=== PATIENT | male | born 2000 | race African-American/Black ===

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

== ENCOUNTER 2022-03-06 16:27 | Emergency (ER) | payer OTHER ==
--- OUTSIDE RECORDS SUMMARY | 2022-03-06 16:30 | XMS REPORT | Continuity of Care Document ---
:2000 Author Organization [facility] t Address [address] [place] [address] Care Team Providers Name Role Phone Pcp, Does Not Have A Primary Care Physician Vickey Guzman MD Attending Clinician Symone HILLIARD Attending Clinician Unavailable Vickey GUZMAN Attending Clinician Unavailable Payers Payer Name Policy Type Policy Number Effective Date Expiration Date S ource Problems Condition Condition Condition Status Onset Resolution Last Treating Co mments Source Name Details Category Date Date Treatment Clinician Date Rupture of Rupture of Disease Active U nivers anterior anterior 05-03 ity of cruciate cruciate 00:00: [place] ligament ligament 00 Medica l of right of right Branch knee knee Allergies, Adverse Reactions, Alerts Allergy Allergy Status Severity Reaction(s) Onset Inactive Treating Comm ents Source Name Type Date Date Clinician ASPIRIN DRUG Active Other-Cmnt Unive rs INGREDI 05-21 ity of 00:00: [place] 00 Medical Branch Aspirin Propensi Active Other - See Increased Univers ty to comments 05-21 heart ity of adverse 00:00: rate [place] reaction 00 Medical s Branch Social History Social Habit Start Date Stop Date Quantity Comments Source Exposure to Not sure [facility] SARS-CoV-2 (event) Medica l Branch Tobacco use and 2020-08-03 2020-08-03 Never used [facility] y [facility] exposure 00:00:00 00:00:00 Medical Branch Sex Assigned At [birth year] [facility] 00:00:00 00:00:00 Medical Branch Smoking Status Start Date Stop Date Source Never smoker [facility] Branch Medications Ordered Filled Start Stop Current Ordering Indication Dosage Frequency Signature Comments Components Source Medication Medication Date Date Medication? Clinician (SIG) Name Name cetirizine 2019-0 Yes 10mg Take 10 mg U nivers 10 mg 9-20 by mouth ity of tablet 00:00: daily. [address] cetirizine 2020-0 Yes 10mg Take 10 mg U nivers 10 mg 9-20 by mouth ity of tablet 00:00: daily. [place] [facility] PROAIR HFA 2019-0 Yes INHALE 2 Uni vers 90 8-19 PUFFS BY ity of mcg/actuati 00:00: MOUTH [place] on inhaler 00 EVERY 4 Medica l HOURS Branch NEEDED FOR SHORTNESS OF BREATH PROAIR HFA 2019-0 Yes INHALE 2 Uni vers 90 8-19 PUFFS BY ity of mcg/actuati 00:00: MOUTH [place] on inhaler 00 EVERY 4 Medica l HOURS Branch NEEDED FOR SHORTNESS OF BREATH Vital Signs Vital Name Observation Time Observation Value Comments Source Systolic blood 2021-09-19 21:29:00 110 mm[Hg] Univer sity of pressure [facility] Diastolic blood 2021-09-19 21:29:00 75 mm[Hg] Unive rsity of pressure [facility] Heart rate 2021-09-19 21:29:00 53 /min [facility] Respiratory rate 2021-09-19 21:29:00 20 /min [facility] Body height 2021-09-19 21:29:00 172.7 cm [facility] Body weight 2021-09-19 21:29:00 77.701 kg [facility] BMI 2021-09-19 21:29:00 26.05 kg/m2 [facility] Body mass index 2021-09-19 21:29:00 83.90 % Unive rsity of (BMI) [Percentile] [place] Med ical Per age and sex Branch Oxygen saturation in 2021-09-19 21:29:00 98 /min [facility] Arterial blood by [facility] Pulse oximetry Branch Procedures This patient has no known procedures. Encounters Start End Encounter Admission Attending Care Care Encounter Source Date/Time Date/Time Type Type Clinicians Facility Department ID 2021-11-28 2021-11-28 Telephone JIMMIE Guzman [id number] Univers 00:00:00 00:00:00 Al[place]to [facility] [id number] it y of [place] [id number] Eladio as KATHRYN?BLEA [id number] [place] [address] MEDICAL OFFICE [facility] 2021-11-27 2021-11-27 Outpatient Leila HILLIARD [facility] [id number] Univers 13:45:00 13:45:00 JOSE [id number] ity [facility] 2021-11-27 2021-11-27 [facility] [id number] Univers 13:45[facility]00 [facility]45[facility]26 2021-11-26 Outpatient Leila HILLIARD [facility] [id number] Univers 13:45:00 13:45:00 [facility] [id number] [facility]26 2021-11-26 [facility] [id number] Univers 13:45:00 [facility]:45[facility]23 2021-11-23 [facility] [id number] Univers 08:45:00 08:45:00 [facility] 2021-11-23 2021-11-23 [facility] [id number] Univers 08:45:00 08:45:00 [facility] 2021-11-12 2021-11-12 [facility] [id number] Univers 14:00:00 14:00:00 [facility] 2021-11-12 2021-11-12 [facility] [id number] Univers 14:00:00 14:00:00 [place] [id number] [facility] 2021-09-19 2021-09-19 [facility] [id number] Univers 15:30[facility]00 [facility]38[facility] 2021-09-19 [facility] [id number] Univers 15:14:11 15:38:37 Visit [facility] [id number] it y of [place] [id number] Eladio as KATHRYN?BLEA [id number] [place] GUILLAUME [address] [place] [address] MEDICAL OFFICE BUILDING Results This patient has no known results.
[2022-03-06] MEDS ORDERED: LIDOCAINE 1% MPF 5 ML VIAL ONE (17:11)
[2022-03-06] MEDS ORDERED: LIDOCAINE VISCOUS 2% SOLN 15 ML UDC ONE (18:19)
--- NOTE | 2022-03-06 18:34 | ER ---
Nurse's Notes [facility] Name: Rainer Cook Age: 21 yrs Sex: Male : 2000 Arrival Date: 03/06/2022 Time: 16:30 Bed 23 Private MD: Diagnosis: Cellulitis of left external ear Presentation: 03/06 16:39 Chief complaint: Patient states: left ear pain since Friday and swelling to left ear aa5 since today. 16:39 Coronavirus screen: At this time, the client does not indicate any symptoms associated aa5 with coronavirus-19. Ebola Screen: No symptoms or risks identified at this time. Initial Sepsis Screen: Does the patient meet any 2 criteria? No. Patient's initial sepsis screen is negative. Does the patient have a suspected source of infection? No. Patient's initial sepsis screen is negative. Risk Assessment: Do you want to hurt yourself or someone else? Patient reports no desire to harm self or others. Onset of symptoms was 2021. 16:39 Method Of Arrival: Ambulatory aa5 16:39 Acuity: REI 4 aa5 Historical: - Allergies: 16:52 No Known Allergies; aa5 - PMHx: 16:52 Asthma; aa5 - PSHx: 16:52 Right Knee; aa5 - Immunization history:: Adult Immunizations unknown. - Social history:: Smoking status: Patient denies any tobacco usage or history of. Screenin:50 Abuse screen: Denies threats or abuse. Nutritional screening: No deficits noted. jb4 Tuberculosis screening: No symptoms or risk factors identified. Fall Risk None identified. Assessment: 16:50 General: Appears in no apparent distress. comfortable, Behavior is calm, cooperative, jb4 appropriate for age. Pain: Complains of pain in left ear Pain does not radiate. Pain currently is 4 out of 10 on a pain scale. Neuro: Level of Consciousness is awake, alert, obeys commands, Oriented to person, place, time, situation. Cardiovascular: Patient's skin is warm and dry. Respiratory: Airway is patent Respiratory effort is even, unlabored, Respiratory pattern is regular, symmetrical. GI: No signs and/or symptoms were reported involving the gastrointestinal system. : No signs and/or symptoms were reported regarding the genitourinary system. EENT: Ear canal clear on left ear Swelling noted to the left ear lobe. Derm: Skin is intact, Skin is pink, warm \T\ dry. Musculoskeletal: Circulation, motion, and sensation intact. Range of motion: intact in all extremities. 17:50 Reassessment: Patient appears in no apparent distress at this time. Patient and/or jb4 family updated on plan of care and expected duration. Pain level reassessed. Patient is alert, oriented x 3, equal unlabored respirations, skin warm/dry/pink. 19:12 Reassessment: Patient appears in no apparent distress at this time. Patient and/or jb4 family updated on plan of care and expected duration. Pain level reassessed. Patient is alert, oriented x 3, equal unlabored respirations, skin warm/dry/pink. Vital Signs: 16:39 BP 118 / 63; Pulse 71; Resp 16 S; Temp 99.7(TE); Pulse Ox 98% on R/A; Weight 81.65 kg aa5 (R); Height 5 ft. 8 in. (172.72 cm) (R); 18:15 BP 116 / 66; Pulse 75; Resp 16; Pulse Ox 100% on R/A; jb4 16:39 Body Mass Index 27.37 (81.65 kg, 172.72 cm) aa5 ED Course: 16:30 Patient arrived in ED. as 16:35 Ian Pineda PA is PHCP. cp 16:35 Esteban Silva MD is Attending Physician. cp 16:39 Arm band placed on Patient placed in an exam room, on a stretcher. aa5 16:50 Patient has correct armband on for positive identification. Bed in low position. Call jb4 light in reach. Side rails up X 1. 16:51 Christpoher Grant RN is Primary Nurse. jb4 16:52 Triage completed. aa5 18:33 Brittanie King MD is Referral Physician. cp 19:13 No provider procedures requiring assistance completed. Patient did not have IV access jb4 during this emergency room visit. Administered Medications: 17:50 Drug: Lidocaine (1 %) 5 mg {Note: Administered by ER provider.} Route: Infiltration; jb4 18:16 Drug: Viscous Lidocaine Liquid (4 %) 5 ml Route: Mucous Membrane; jb4 19:10 Drug: Ibuprofen 800 mg Route: PO; jb4 19:16 Follow up: Response: Medication administered at discharge. jb4 19:10 Drug: Tylenol #3 (300 mg-30 mg) 2 tabs Route: PO; jb4 19:16 Follow up: Response: Medication administered at discharge. jb4 19:10 Drug: Doxycycline 100 mg Route: PO; jb4 19:15 Follow up: Response: Medication administered at discharge. jb4 19:10 Drug: Bactrim (trimethoprim-sulfamethoxazole) (160 mg-800 mg (DS) 1 tablet Route: PO; jb4 19:15 Follow up: Response: Medication administered at discharge. jb4 Outcome: 18:34 Discharge ordered by MD. cp 19:13 Discharged to home ambulatory. jb4 19:13 Condition: stable 19:13 Discharge instructions given to patient, Instructed on discharge instructions, follow up and referral plans. no drinking with medication, no driving heavy equipment, medication usage, Demonstrated understanding of instructions, follow-up care, medications, Prescriptions given X 4. 19:16 Patient left the ED. jb4 Signatures: Sariah Bee Audri, RN RN aa5 Ian Pineda PA PA Christopher Vann, RN RN jb4
--- NOTE | 2022-03-06 18:34 | EDPHYS ---
Physician Documentation [facility] Name: Rainer Cook Age: 21 yrs Sex: Male : 2000 Arrival Date: 03/06/2022 Time: 16:30 Bed 23 Private MD: ED Physician Esteban Silva HPI: 03/06 17:05 This 21 yrs old Black Male presents to ER via Ambulatory with complaints of Ear Pain, cp Boil. 17:05 The patient presents with pain, that is acute, swelling, tenderness. The complaints cp affect the left ear. 17:05 Onset: The symptoms/episode began/occurred 4 day(s) ago. cp 17:05 Associated signs and symptoms: Pertinent positives: drainage from ear, Pertinent cp negatives: fever, sore throat. Patient reports swelling, pain to left ear canal. Reports sister squeezed area and expressed drainage. Historical: - Allergies: 16:52 No Known Allergies; aa5 - PMHx: 16:52 Asthma; aa5 - PSHx: 16:52 Right Knee; aa5 - Immunization history:: Adult Immunizations unknown. - Social history:: Smoking status: Patient denies any tobacco usage or history of. ROS: 17:10 ENT: Positive for drainage from ear(s), ear pain, Negative for sinus pain, sore throat, cp difficulty swallowing, difficulty handling secretions. 17:10 Constitutional: Negative for body aches, chills, fever. cp 17:10 Respiratory: Negative for cough, shortness of breath, wheezing. 17:10 Abdomen/GI: Negative for abdominal pain, vomiting, diarrhea, constipation. 17:10 Neuro: Negative for altered mental status, headache, weakness. 17:10 All other systems are negative. Exam: 17:15 Constitutional: The patient appears in no acute distress, alert, awake, non-toxic, well cp developed, well nourished, uncomfortable. 17:15 Head/face: Noted is swelling, that is mild, of the left distal ear canal, tenderness, cp that is moderate, of the left distal ear canal. 17:15 Eyes: Periorbital structures: appear normal, Conjunctiva: normal, no exudate, no injection, Lids and lashes: appear normal, bilaterally. 17:15 ENT: External ear(s): pain with movement, that is moderate, of the pinna of left ear and left ear canal, Ear canal(s): purulent discharge, is not appreciated, swelling, that is moderate, of the left canal, TM's: erythema, that is mild, on the left, Examination of the other ear shows no obvious abnormality, Nose: is normal, Mouth: Lips: moist, Oral mucosa: pink and intact, moist, Posterior pharynx: Airway: no evidence of obstruction, patent. 17:15 Neck: ROM/movement: is normal, is supple, without pain, no range of motions limitations. 17:15 Chest/axilla: Inspection: normal. 17:15 Cardiovascular: Rate: normal, Rhythm: regular. 17:15 Respiratory: the patient does not display signs of respiratory distress, Respirations: normal, no use of accessory muscles, no retractions, labored breathing, is not present. 17:15 Abdomen/GI: Exam negative for discomfort, distension, guarding, Inspection: abdomen appears normal. 17:15 Skin: no rash present. Vital Signs: 16:39 BP 118 / 63; Pulse 71; Resp 16 S; Temp 99.7(TE); Pulse Ox 98% on R/A; Weight 81.65 kg aa5 (R); Height 5 ft. 8 in. (172.72 cm) (R); 18:15 BP 116 / 66; Pulse 75; Resp 16; Pulse Ox 100% on R/A; jb4 16:39 Body Mass Index 27.37 (81.65 kg, 172.72 cm) aa5 Procedures: 18:35 I \T\ D: attempt to aspirate left distal ear canal unsuccessful. Attempt made with 18 cp gauge needle. No drainage obtained. MDM: 16:44 Patient medically screened. cp 18:34 Data reviewed: vital signs, nurses notes. cp 18:34 Counseling: I had a detailed discussion with the patient and/or guardian regarding: the cp historical points, exam findings, and any diagnostic results supporting the discharge/admit diagnosis, the need for outpatient follow up, an ENT specialist, to return to the emergency department if symptoms worsen or persist or if there are any questions or concerns that arise at home. Response to treatment: the patient's symptoms have mildly improved after treatment, and as a result, I will discharge patient. 03/06 17:00 Order name: I\T\D Setup; Complete Time: 17:09 cp Administered Medications: 17:50 Drug: Lidocaine (1 %) 5 mg {Note: Administered by ER provider.} Route: Infiltration; jb4 18:16 Drug: Viscous Lidocaine Liquid (4 %) 5 ml Route: Mucous Membrane; jb4 19:10 Drug: Ibuprofen 800 mg Route: PO; jb4 19:16 Follow up: Response: Medication administered at discharge. jb4 19:10 Drug: Tylenol #3 (300 mg-30 mg) 2 tabs Route: PO; jb4 19:16 Follow up: Response: Medication administered at discharge. jb4 19:10 Drug: Doxycycline 100 mg Route: PO; jb4 19:15 Follow up: Response: Medication administered at discharge. jb4 19:10 Drug: Bactrim (trimethoprim-sulfamethoxazole) (160 mg-800 mg (DS) 1 tablet Route: PO; jb4 19:15 Follow up: Response: Medication administered at discharge. jb4 Disposition Summary: 03/06/22 18:34 Discharge Ordered Location: Home cp Problem: new cp Symptoms: have improved cp Condition: Stable cp Diagnosis - Cellulitis of left external ear cp Followup: cp - With: Brittanie King MD - When: 1 - 2 days - Reason: Recheck today's complaints Discharge Instructions: - Discharge Summary Sheet cp - Cellulitis, Adult cp Forms: - Medication Reconciliation Form cp - Thank You Letter cp - Antibiotic Education cp - Prescription Opioid Use cp Prescriptions: - Ibuprofen 800 mg Oral Tablet - take 1 tablet by ORAL route every 8 hours As needed take with food; 30 tablet; cp Refills: 0, Product Selection Permitted - Doxycycline Hyclate 100 mg Oral Tablet - take 1 tablet by ORAL route every 12 hours; 20 tablet; Refills: 0, Product cp Selection Permitted - Bactrim DS 800-160 mg Oral Tablet - take 1 tablet by ORAL route every 12 hours for 10 days; 20 tablet; Refills: 0, cp Product Selection Permitted - Tylenol-Codeine #3 300 mg-30 mg Oral - take 2 tablet by ORAL route every 8-10 hours; 12 tablet; Refills: 0, Product cp Selection Permitted Addendum: 03/11/2022 19:01 Co-signature as Attending Physician, Esteban Silva MD. r n Signatures: Esteban Silva MD MD rn Calderon, Audri, RN RN aa5 Ian Pineda PA PA cp Bryson, James, RN RN jb4
[2022-03-06] MEDS ORDERED: CODEINE 30MG/APAP 300MG TAB ONE (19:05)
[2022-03-06] MEDS ORDERED: SMZ./TMP. 800/160 MG TABLET ONE (19:06)
[2022-03-06] MEDS ORDERED: DOXYCYCLINE 100 MG CAP PO ONE (19:06)
[2022-03-06] MEDS ORDERED: IBUPROFEN 400 MG TAB ONE (19:06)
[2022-03-06 19:42] VITALS: TEMP 99.7
[2022-03-06 19:48] VITALS: BP 116/66; O2SAT 100
== END 2022-03-06 19:16 | disposition home or self-care (01) ==
LOC: ER 16:27
PROC: 0991XZZ Drainage of Left External Ear, External Approach (ICD-10-PCS; principal; 2022-03-06)
DX: H60.12 Cellulitis of left external ear (principal)
CPT/HCPCS: 99283

== ENCOUNTER 2022-05-31 14:15 | Emergency (ER) | payer OTHER ==
[2022-05-31] MEDS ORDERED: FAMOTIDINE 20 MG/2 ML VIAL IV ONE (15:06)
[2022-05-31] MEDS ORDERED: ONDANSETRON 4 MG/2 ML VIAL ONE (15:06)
[2022-05-31] MEDS ORDERED: NA CHLORIDE 0.9% 1,000 ML ONE (15:06)
[2022-05-31 15:48] LABS: Albumin 4.1 g/dL (3.4-5.0); Bilirubin Total 0.8 mg/dL (0.2-1.0); Potassium 3.5 mmol/L (3.5-5.1); Protein, Total 7.9 g/dL (6.4-8.2)
--- NOTE | 2022-05-31 16:16 | RAD REPORT ---
EXAM DESCRIPTION: CTAbdomen Pelvis W Contrast - 05/31/2022 4:09 pm CLINICAL HISTORY: Abdominal pain. RUQ pain COMPARISON: No comparisons TECHNIQUE: Biphasic CT imaging of the abdomen and pelvis was performed with 100 ml non-ionic IV cont rast. All CT scans are performed using dose optimization technique as appropriate and may include automated exposure control or mA/KV adjustment according to patient size. FINDINGS: The lung bases are clear. The liver, spleen, pancreas, adrenal glands and kidneys are within normal limits. No bowel obstruction, free air, intra-abdominal free fluid or abscess. There is mild pelvic free flui d noted. The appendix is normal. No evidence of significant lymphadenopathy. No suspicious bony findings. IMPRESSION: Mild nonspecific pelvic free.
[2022-05-31 16:33] LABS: Absolute Lymphocytes (CBC) 0.5 K/uL (0.7-4.9); Hematocrit 46.9 % (39.6-49.0); Lymphocytes % 3.5 % (15.3-44.8); MCV 87.8 fL (80-100); MPV 9.9 fL (7.6-11.3); RBC Red Blood Cell Count 5.34 M/uL (4.33-5.43)
[2022-05-31] MEDS ORDERED: PROMETHAZINE INJ 25 MG/ML AMP ONE (16:39)
[2022-05-31] MEDS ORDERED: MORPHINE 4 MG/ML SYR ONE (16:40)
--- NOTE | 2022-05-31 17:56 | ER ---
Nurse's Notes [facility] Name: Rainer Cook Age: 21 yrs Sex: Male : 2000 Arrival Date: 05/31/2022 Time: 14:18 Bed 25 Private MD: Diagnosis: Nausea with vomiting, unspecified Presentation: 05/31 14:18 Chief complaint: Patient states: abd pain, nausea and vomited once today. Coronavirus iw screen: At this time, the client does not indicate any symptoms associated with coronavirus-19. Ebola Screen: Patient negative for fever greater than or equal to 101.5 degrees Fahrenheit, and additional compatible Ebola Virus Disease symptoms Patient denies exposure to infectious person. Patient denies travel to an Ebola-affected area in the 21 days before illness onset. No symptoms or risks identified at this time. Initial Sepsis Screen: Does the patient meet any 2 criteria? No. Patient's initial sepsis screen is negative. Does the patient have a suspected source of infection? No. Patient's initial sepsis screen is negative. Risk Assessment: Do you want to hurt yourself or someone else? Patient reports no desire to harm self or others. Onset of symptoms was May 31, 2022. Care prior to arrival: Medication(s) given: Normal saline infusion, 500 mL, zofran 4 mg, IV initiated. 18 GA, in the left antecubital area. 14:18 Method Of Arrival: EMS: [facility] iw 14:18 Acuity: REI 3 iw Triage Assessment: 15:24 General: Appears uncomfortable, Behavior is calm, cooperative. leon Historical: - Allergies: 14:19 No Known Allergies; iw - Home Meds: 14:19 Advair Diskus Inhl [Active]; iw - PMHx: 14:19 Asthma; iw - PSHx: 15:24 right knee; leon - Immunization history:: Adult Immunizations up to date. - Social history:: Smoking status: Patient denies any tobacco usage or history of. Screenin:23 Abuse screen: Denies threats or abuse. Denies injuries from another. Nutritional leon screening: No deficits noted. Tuberculosis screening: No symptoms or risk factors identified. Fall Risk None identified. Assessment: 15:23 Pain: Complains of pain in abdomen. GI: Bowel sounds present X 4 quads. Abd is soft leon Abdomen is tender to palpation Reports nausea, Pain is 9 out of 10 on a pain scale. vomiting. 19:11 Reassessment: Patient appears in no apparent distress at this time. Patient and/or jb4 family updated on plan of care and expected duration. Pain level reassessed. Patient is alert, oriented x 3, equal unlabored respirations, skin warm/dry/pink. Vital Signs: 14:39 BP 155 / 101; Pulse 71; Resp 16; Temp 97.4; Pulse Ox 100% on R/A; iw ED Course: 14:18 Patient arrived in ED. iw 14:19 Triage completed. iw 14:19 Nieves Osman, [facility] 14:19 Ian Maharaj MD is Attending Physician. [facility] 14:19 Arm band placed on. iw 14:42 Monica Pollack, RN is Primary Nurse. leon 15:23 Patient has correct armband on for positive identification. leon 15:23 No provider procedures requiring assistance completed. Maintain EMS IV. Gauge \T\ site: leon 18g lac double lumen. 16:11 CT Abd/Pelvis - IV Contrast Only In Process Unspecified. EDMS 19:04 Primary Nurse role handed off by Monica Pollack, RN eb 19:37 IV discontinued, intact, bleeding controlled, No redness/swelling at site. Pressure jb4 dressing applied, Removed by prior RN. Administered Medications: 15:06 Drug: NS 0.9% 1000 ml Route: IV; Rate: 1 bolus; Site: left antecubital; leon 15:06 Drug: Pepcid (famotidine) 20 mg Route: IVP; Site: left antecubital; leon 15:06 Follow up: Response: No adverse reaction leon 15:06 Drug: Zofran (Ondansetron) 4 mg Route: IVP; Site: left antecubital; leon 15:07 Follow up: Response: No adverse reaction leon 16:46 Drug: morphine 4 mg Route: IVP; Infused Over: 4 mins; Site: left antecubital; leon 16:47 Follow up: Response: No adverse reaction leon 16:47 Drug: Phenergan (promethazine) 12.5 mg Route: IVP; Site: left antecubital; leon 16:47 Follow up: Response: No adverse reaction leon Medication: 15:23 VIS not applicable for this client. leon Outcome: 17:55 Discharge ordered by MD. headley 19:37 Discharged to home via wheelchair, with family. meg 19:37 Condition: stable 19:37 Discharge instructions given to patient, Instructed on discharge instructions, follow up and referral plans. medication usage, Demonstrated understanding of instructions, follow-up care, medications, Prescriptions given X 2. 19:39 Patient left the ED. meg Signatures: Dispatcher [employer] EDBeti Delgado RN RN iw Bryson, James, RN RN jbEmi Chase Heather, RN RN ha Hadash, Jennifer, FNP FNP jh7
--- NOTE | 2022-05-31 17:56 | EDPHYS ---
Physician Documentation [facility] Name: Rainer Cook Age: 21 yrs Sex: Male : 2000 Arrival Date: 05/31/2022 Time: 14:18 Bed 25 Private MD: ED Physician Ian Maharaj HPI: 05/31 14:30 This 21 yrs old Black Male presents to ER via EMS with complaints of Abdominal Pain. jh7 14:30 The patient presents with abdominal pain that is diffuse. Associated signs and jh7 symptoms: Pertinent positives: nausea and vomiting, Pertinent negatives: diarrhea. Patient reports that he woke up this morning, ate breakfast, and immediately started vomiting. Reports that he vomited 7 times prior to arrival. Thinks that he may have eaten something bad last night. Denies fever. Past medical history asthma.. Historical: - Allergies: 14:19 No Known Allergies; iw - Home Meds: 14:19 Advair Diskus Inhl [Active]; iw - PMHx: 14:19 Asthma; iw - PSHx: 15:24 right knee; leon - Immunization history:: Adult Immunizations up to date. - Social history:: Smoking status: Patient denies any tobacco usage or history of. ROS: 14:30 Constitutional: Negative for fever, chills, and weight loss, ENT: Negative for injury, jh7 pain, and discharge, Cardiovascular: Negative for chest pain, palpitations, and edema, Respiratory: Negative for shortness of breath, cough, wheezing, and pleuritic chest pain, Back: Negative for injury and pain, Skin: Negative for injury, rash, and discoloration, Neuro: Negative for headache, weakness, numbness, tingling, and seizure. 14:30 Abdomen/GI: Positive for abdominal pain, nausea and vomiting, Negative for diarrhea, black/tarry stool. 14:30 All other systems are negative. Exam: 14:30 ENT: Nares patent. No nasal discharge, no septal abnormalities noted. Tympanic jh7 membranes are normal and external auditory canals are clear. Oropharynx with no redness, swelling, or masses, exudates, or evidence of obstruction, uvula midline. Mucous membranes moist. Neck: Trachea midline, no thyromegaly or masses palpated, and no cervical lymphadenopathy. Supple, full range of motion without nuchal rigidity, or vertebral point tenderness. No Meningismus. Cardiovascular: Regular rate and rhythm with a normal S1 and S2. No gallops, murmurs, or rubs. Normal PMI, no JVD. No pulse deficits. Respiratory: Lungs have equal breath sounds bilaterally, clear to auscultation and percussion. No rales, rhonchi or wheezes noted. No increased work of breathing, no retractions or nasal flaring. Back: No spinal tenderness. No costovertebral tenderness. Full range of motion. Skin: Warm, dry with normal turgor. Normal color with no rashes, no lesions, and no evidence of cellulitis. MS/ Extremity: Pulses equal, no cyanosis. Neurovascular intact. Full, normal range of motion. Neuro: Awake and alert, GCS 15, oriented to person, place, time, and situation. Normal gait. 14:30 Constitutional: The patient appears in no acute distress, alert, in obvious distress, actively vomiting 14:30 Abdomen/GI: Inspection: abdomen appears normal, Bowel sounds: normal, Palpation: mild abdominal tenderness, in the right upper quadrant. Vital Signs: 14:39 BP 155 / 101; Pulse 71; Resp 16; Temp 97.4; Pulse Ox 100% on R/A; iw MDM: 14:29 Patient medically screened. [facility] 18:00 Data reviewed: vital signs, nurses notes, lab test result(s), radiologic studies, CT [facility] scan. Data interpreted: Pulse oximetry: is 100 %. Interpretation: normal. Counseling: I had a detailed discussion with the patient and/or guardian regarding: the historical points, exam findings, and any diagnostic results supporting the discharge/admit diagnosis, to return to the emergency department if symptoms worsen or persist or if there are any questions or concerns that arise at home. Response to treatment: the patient's symptoms have resolved after treatment, the patient's pain is gone, No vomiting. ED course: The patient responded well to pain medication administration and fluids. his lab results and CT scan were discussed with him. He was advised to take his medications as directed, increase fluid intake, and return to the ER if he develops any new concerning symptoms. The patient agreed with the plan of care.. 05/31 14:30 Order name: CBC with Diff; Complete Time: 16:51 [facility] 05/31 14:30 Order name: CMP; Complete Time: 16:09 [facility] 05/31 14:30 Order name: Lipase; Complete Time: 16:09 [facility] 05/31 14:30 Order name: CT Abd/Pelvis - IV Contrast Only; Complete Time: 16:26 [facility] 05/31 16:27 Order name: SARS-COV-2 RT PCR (Document "Date of Onset" if Symptomatic); Complete Time: [facility] 17:52 05/31 16:27 Order name: Flu; Complete Time: 17:14 [facility] 05/31 14:30 Order name: IV Saline Lock; Complete Time: 15:07 [facility] 05/31 14:30 Order name: Labs collected and sent; Complete Time: 15:23 [facility] 05/31 15:32 Order name: Labs - recollect needed: recollect cbc lavender tube hemolyzed; Complete eb Time: 16:25 Administered Medications: 15:06 Drug: NS 0.9% 1000 ml Route: IV; Rate: 1 bolus; Site: left antecubital; leon 15:06 Drug: Pepcid (famotidine) 20 mg Route: IVP; Site: left antecubital; leon 15:06 Follow up: Response: No adverse reaction leon 15:06 Drug: Zofran (Ondansetron) 4 mg Route: IVP; Site: left antecubital; leon 15:07 Follow up: Response: No adverse reaction leon 16:46 Drug: morphine 4 mg Route: IVP; Infused Over: 4 mins; Site: left antecubital; leon 16:47 Follow up: Response: No adverse reaction leon 16:47 Drug: Phenergan (promethazine) 12.5 mg Route: IVP; Site: left antecubital; leon 16:47 Follow up: Response: No adverse reaction Disposition Summary: 05/31/22 17:55 Discharge Ordered Location: Home [facility] Problem: new [facility] Symptoms: have improved [facility] Condition: Stable [facility] Diagnosis - Nausea with vomiting, unspecified [facility] Followup: [facility] - With: Private Physician - When: 2 - 3 days - Reason: Recheck today's complaints Discharge Instructions: - Discharge Summary Sheet [facility] - Nausea and Vomiting, Adult [facility] - Viral Gastroenteritis, Adult [facility] Forms: - Medication Reconciliation Form [facility] - Thank You Letter [facility] Prescriptions: - ondansetron 4 mg Oral tablet,disintegrating - place 1 tablet by TRANSLINGUAL route 4 times per day As needed; 20 tablet; 7 Refills: 0, Product Selection Permitted - Levsin 0.125 mg Oral Tablet - take 1 tablet by ORAL route every 8 hours; 30 tablet; Refills: 0, Product 7 Selection Permitted Signatures: Dispatcher [employer] Beti Sommer RN RN iw Botello, Elizabeth eb Au-Stager, Heather, RN RN ha Hadash, Jennifer, FNP [place] [id number]
[2022-05-31 20:30] VITALS: BP 155/101; TEMP 97.4; O2SAT 100
== END 2022-05-31 19:39 | disposition home or self-care (01) ==
LOC: ER 14:15
DX: R11.2 Nausea with vomiting, unspecified (principal); R10.9 Unspecified abdominal pain; Z20.822 Contact with and (suspected) exposure to COVID-19
CPT/HCPCS: 85025; 36415; 83690; 80053; 87804 ×2; 74177; U0003; Q9967; J2550; J7030; J2405; J3490; 96374; 96375; 99284

== ENCOUNTER 2022-11-05 19:01 | Emergency (ER) | payer OTHER ==
--- OUTSIDE RECORDS SUMMARY | 2022-11-05 19:07 | XMS REPORT | Continuity of Care Document ---
:2000 Author Organization [facility] t Address [address] [place] [address] Dr. Uribe [address] [place] [id number] Care Team Providers Name Role Phone Pcp, Patient Does Not Have A Primary Care Physician [id number] JOSTIN REAGAN Attending Clinician Unavailable Jostin Reagan MD Attending Clinician JOSE IHLLIARD Attending Clinician Unavailable Jose Fernandez Attending Clinician Only, Adc Test Attending Clinician Unavailable Doctor Unassigned, [facility] Attending Clinician Unavailable Meir Mccoy MD Attending Clinician MEIR MCCOY Attending Clinician Unavailable GILBERT ROD Attending Clinician Unavailable JOSTIN REAGAN Admitting Clinician Unavailable Jostin Reagan MD Admitting Clinician Payers Payer Name Policy Type Policy Number Effective Date Expiration Date Symone winn [place] [facility] [id number] 2020 HEALTH 00:00:00 Problems Condition Condition Condition Status Onset Resolution [...] - See Increased Univers ty to comments 7-19 heart ity of adverse 00:00: rate [place] reaction 00 Medical s Branch Social History Social Habit Start Date Stop Date Quantity Comments Source Exposure to Not sure [facility] SARS-CoV-2 (event) Medica l Branch Tobacco use and 2020-08-03 2020-08-[address] [facility] exposure 00:00:00 00:00:00 Medical Branch Sex Assigned At [address] [facility] 00:00:00 00:00:00 Medical Branch Smoking Status Start Date Stop Date Source Never smoker [facility] Medications Ordered Filled Start Stop Current Ordering Indication Dosage Frequency Signature Comments Components Source Medication Medication Date Date Medication? Clinician (SIG) Name Name cetirizine Yes 10mg Take 10 mg U nivers 10 mg 9-20 by mouth ity of tablet 00:00: daily. [place] [address] [facility] [place] cetirizine 2019-0 Yes 10mg Take 10 mg U nivers 10 mg 9-20 by mouth ity of tablet 00:00: daily. [place] [facility] [place] PROAIR HFA 0 Yes INHALE 2 Uni vers 90 8-19 PUFFS BY ity of mcg/actuati 00:00: MOUTH [place] on inhaler 00 EVERY 4 Medica l HOURS Branch NEEDED FOR SHORTNESS OF BREATH PROAIR HFA 0 Yes INHALE 2 Uni vers 90 8-19 PUFFS BY ity of mcg/actuati 00:00: MOUTH [place] on inhaler 00 EVERY 4 Medica l HOURS Branch NEEDED FOR SHORTNESS OF BREATH Vital Signs Vital Name Observation Time Observation Value Comments Source Systolic blood 2021-09-19 21:29:00 110 mm[Hg] Univer sity of [facility] Diastolic blood 2021-09-19 21:29:00 75 mm[Hg] Unive rsity [facility] Heart rate 2021-09-19 21:29:00 53 /min [facility] Respiratory rate 2021-09-19 21:29:00 20 /min [facility] Body height 2021-09-19 21:29:[address] [facility] Body weight 2021-09-19 21:29:[address] [facility] BMI 2021-09-19 21:29:00 26.05 kg/m2 Universi [facility] Body mass index 2021-09-19 21:29:00 83.90 % Unive rsity of (BMI) [Percentile] [facility] [place] ical Per age and sex Branch Oxygen saturation in 2021-09-19 21:29:00 98 /min University Arterial blood by [facility] Pulse oximetry Branch Procedures This patient has no known procedures. Encounters Start End Encounter Admission Attending Care Care Encounter Source Date/Time Date/Time Type Type Clinicians Facility Department ID 2021-09-03 Outpatient TEZ [facility] SOR [id number] Univers 07:04:12 [facility] [place] [facility] 2021-11-28 2021-11-28 Telephone Tez [facility] [id number] Univers 00:00:00 00:00:00 Jostin Hurd [email or web address] [id number] it y of [place] [id number] Eladio as ALTON?BLEA [phone] Wi huan [address] MEDICAL OFFICE BUILDING 2021-11-27 2021-11-27 Outpatient Leila HILLIARD [facility] [id number] Univers 13:45:00 13:45:00 [facility] 2021-11-26 2021-11-26 Outpatient Leila HILLIARD [facility] [id number] Univers 13:45:00 13:45:00 [facility] 2021-11-23 2021-11-23 Outpatient Leila HILLIARD [facility] [id number] Univers 08:45:00 08:45:00 [facility] 2021-11-12 2021-11-12 Outpatient Leila HILLIARD [facility] [id number] Univers 14:00:00 14:00:00 [facility] 2021-09-19 2021-09-19 Outpatient Leila REAGAN [facility] [id number] Univers 15:30:00 15:38:37 [facility] [place] [facility] 2021-09-19 2021-09-19 [facility] [id number] Univers 15:14:11 15:38:37 Visit Jostin L [email or web address] [id number] it y of [place] [id number] Eladio as ALTON?BLEA [phone] Me huan [place] [address] [place] OFFICE [facility] 2021-09-19 2021-09-19 Outpatient R TEZ [facility] [id number] Univers 15:30:00 15:30:00 JOSTIN hutson [facility] 2021-08-22 2021-08-22 Office Jose Hilliard [facility] [id number] Univers 16:06:08 16:46:38 Visit Jostin Reagan [employer] [id number] ity of [place] [id number] Eladio as [place]?Blea [phone] Wi huan [place] [address] [place] [address] 2021-08-22 2021-08-22 [facility] [id number] Univers 15:45:00 15:45:00 [facility] [place] [facility] 2021-08-15 2021-08-15 [facility] [id number] Univers 15:00:00 15:00:00 [facility] 2021-07-11 2021-07-11 [facility] [id number] Univers 14:00:00 14:00:00 [facility] 2021-07-04 2021-07-04 Telephone [facility] [id number] Univers 00:00:00 00:00:00 Jostin Hurd [employer] [id number] it y of [place] [id number] Eladio as [place]?Blea [phone] Wi huan [place] [address] [place] [address] Office [facility] 2021-06-29 2021-06-29 Telephone Tez [facility] [id number] Univers 00:00:00 00:00:00 Jostin Hurd [employer] [id number] it y of [place] [id number] Eladio as [place]?Blea [phone] Wi huan [place] [address] [place] [address] Office [facility] 2021-06-12 2021-06-12 Office Arminda [facility] [id number] Univers 14:07:43 14:22:43 Visit Jose [facility] [id number] it y of Surgical [id number] Eladio as Specialti [phone] [facility] 198 [facility] 2021-06-12 2021-06-12 Outpatient R ARMINDA [facility] [id number] Univers 14:00:00 14:00:00 JOSE hutson of [facility] 2021-06-04 2021-06-04 Telephone [facility] [id number] Univers 00:00:00 00:00:00 Jostin Hurd Health [id number] it y of Surgical [id number] Eladio as Specialti [phone] [facility] 198 [facility] 2021-05-21 2021-05-21 [facility] [id number] Univers 09:12:00 13:59:00 Encounter Jostin Youssef [id number] ity of [id number] [id number] [facility] 071 [place] 2021-05-21 2021-05-21 [facility] [id number] Univers 11:29:00 13:30:00 Jostin Youssef [id number] i [id number] [phone] [facility] 020 [place] 2021-05-18 2021-05-18 Laboratory Only, Adc Test [facility] 1.2.840. [id number] Univers 13:57:29 14:12:29 Only Jostin Reagan [id number] it[place] [id number] [place] [phone] [facility] 353 [place] 2021-05-18 2021-05-18 [facility] [id number] Univers 10:00:00 10:00:00 JOSTIN hutson [facility] 2021-05-18 2021-05-18 Orders Doctor JAMES 1.2.840.114 [id number] Univers 00:00:00 00:00:00 Only Unassigned, HELADIO [id number] ity of [facility] [id number] Eladio as [phone] [facility] 009 [place] 2021-05-03 2021-05-03 Office [facility] [id number] Univers 10:19:56 10:44:37 Visit Jostin Hurd [facility] [id number] it y of Surgical [id number] Eladio as Specialti [phone] Wi dical es 198 [facility] 2021-05-03 2021-05-03 [facility] [id number] Univers 10:30:00 10:30:00 JOSTIN ity [facility] 2021-04-25 2021-04-25 Hospital [facility] 1.2.840.114 [id number] Univers 14:00:00 23:59:00 Encounter Jostin Yosusef [id number] ity of [place] [id number] [place] [facility] [phone] [facility] 804 [place] 2021-04-25 2021-04-25 [facility] [id number] Univers 00:00:00 00:00:00 JOSTIN itaquilino [facility] 2021-04-25 2021-04-25 Orders Doctor RAMIREZ 1.2.840.114 [id number] Univers 00:00:00 00:00:00 Only Unassigned, HELADIO [id number] ity of [facility] [id number] Eladio as [phone] [address] 2021-04-17 2021-04-17 Telephone [facility] 1.2.840.114 [id number] Univers 00:00:00 00:00:00 Jostin Frank [id number] it y of Surgical [id number] Eladio as Specialti [phone] Wi dical es 198 [facility] 2021-04-16 2021-04-16 Office [facility] 1.2.840.114 [id number] Univers 14:28:09 15:31:11 Visit Jose S [facility] [id number] it y of Surgical [id number] Eladio as Specialti [phone] Wi dical es 198 [facility] 2021-04-16 2021-04-16 Outpatient [facility] [id number] Univers 15:15:00 15:15:00 JOSE ity of [facility] 2020-09-08 2020-09-08 Telephone [facility] 1.2.840.114 [id number] Univers 00:00:00 00:00:00 Jostin Hurd Health [id number] it y of Surgical [id number] Eladio as Specialti [phone] Wi dical es 198 [facility] 2020-08-29 2020-08-29 [facility] [id number] Univers 00:00:00 00:00:00 JOSTIN ity [facility] 2020-08-15 2020-08-15 Orders Doctor JAMES 1.2.840.114 [id number] Univers 00:00:00 00:00:00 Only Unassigned, HELADIO [id number] ity of [facility] [id number] Eladio as [phone] [address] 2020-08-09 2020-08-09 Telephone [facility] 1.2.840.114 [id number] Univers 00:00:00 00:00:00 Jostin Hurd Health [id number] it y of Surgical [id number] Eladio as Specialti [phone] Wi dical es 198 [facility] 2020-08-03 2020-08-03 Office [facility] 1.2.840.114 [id number] Univers 15:18:55 15:33:55 Visit Jose [facility] [id number] it y of Surgical [id number] Eladio as Specialti [phone] Wi dical es 198 [facility] 2020-08-03 2020-08-03 Outpatient [facility] [id number] Univers 15:00:00 15:00:00 JOSE ity of [facility] 2020-08-03 2020-08-03 Letter [facility] 1.2.840.114 [id number] Univers 00:00:00 00:00:00 (Out) Jose Ashby [facility] [id number] it y of Surgical [id number] Eladio as Specialti [phone] Wi dical es 198 [facility] 2020-07-31 2020-07-31 Orders Doctor JAMES 1.2.840.114 [id number] Univers 00:00:00 00:00:00 Only Unassigned, HELADIO [id number] ity of [facility] [id number] Eladio as [phone] [address] 2020-07-28 2020-07-28 [facility] 1.2.840.114 [id number] Univers 16:30:00 23:59:00 Encounter Meir Youssef [id number] ity of [place] [id number] [place] [facility] [phone] [facility] 807 [place] 2020-07-28 2020-07-28 Outpatient [facility] [id number] Univers 00:00:00 00:00:00 MEIR hutson [facility] 2020-07-28 2020-07-28 Orders Doctor JAMES 1.2.840.114 [id number] Univers 00:00:00 00:00:00 Only Unassigned, HELADIO [id number] ity of [facility] [id number] Eladio as [phone] [facility] 009 [place] 2020-06-05 2020-06-05 Outpatient R VIOLA [facility] [id number] Univers 14:00:00 14:00:00 GILBERT hutson of [facility] Results This patient has no known results.
[2022-11-05] MEDS ORDERED: ACETAMINOPHEN 500 MG TAB ONE (20:06)
[2022-11-05] MEDS ORDERED: NA CHLORIDE 0.9% 1,000 ML ONE ×2 (20:22→23:35)
[2022-11-05] MEDS ORDERED: ONDANSETRON 4 MG/2 ML VIAL ONE (20:22)
[2022-11-05] MEDS ORDERED: FAMOTIDINE 20 MG/2 ML VIAL IV ONE (20:22)
[2022-11-05 20:42] LABS: Urine Blood 1+ (Negative); Urine Glucose Negative (Negative); Urine Protein 3+ (Negative); Urine Specific Gravity >=1.030 (1.005-1.030)
[2022-11-05 20:55] LABS: Urine Bacteria >50 /HPF (<20); Urine Crystals Unidentified Few /HPF (None Seen); Urine Mucus 4+ /HPF (None Seen); Urine RBC <5 /HPF (None Seen); Urine WBC Clump Few /HPF (None Seen)
[2022-11-05 20:56] LABS: Absolute Lymphocytes (CBC) 1.1 K/uL (0.7-4.9); Hematocrit 54.1 % (39.6-49.0); Lymphocytes % 4.6 % (15.3-44.8); MCV 87.5 fL (80-100); MPV 10.2 fL (7.6-11.3); RBC Red Blood Cell Count 6.18 M/uL (4.33-5.43)
[2022-11-05 21:04] LABS: Albumin 5.1 g/dL (3.4-5.0); Bilirubin Total 0.7 mg/dL (0.2-1.0); Potassium 3.9 mmol/L (3.5-5.1)
--- NOTE | 2022-11-05 21:19 | RAD REPORT ---
EXAM DESCRIPTION: CTAbdomen Pelvis W Contrast - 11/05/2022 9:03 pm CLINICAL HISTORY: abdominal pain COMPARISON: Abdomen Pelvis W Contrast dated 05/31/2022 TECHNIQUE: CT of the abdomen and pelvis was performed with IV contrast. All CT scans are performed using dose optimization technique as appropriate and may include automated exposure control or mA/KV adjustment according to patient size. FINDINGS: Lower chest: No acute abnormality. Liver: No acute abnormality or suspicious lesions. Biliary: No biliary ductal dilatation. Stomach: No significant focal abnormality. Duodenum: No significant focal abnormality. Pancreas: No significant abnormality. Spleen: No significant abnormality. Adrenal: No suspicious lesions. Kidney/ureter: No hydronephrosis. No renal calculi. Retroperitoneum: No retroperitoneal adenopathy. Vascular: No aneurysm. Bowel: No significant focal abnormality. Peritoneum: No ascites or free air. Bladder: Grossly unremarkable. Reproductive: No adnexal masses. Bones: No acute fracture. Other: n/a IMPRESSION: No acute intra-abdominal or pelvic finding. Normal appendix.
[2022-11-05 21:51] LABS: Blood Morphology Comment NOT SEEN (NOT SEEN); Platelet Estimate ADEQ
[2022-11-05] MEDS ORDERED: CEFTRIAXONE 1000 MG/VIAL ONE (23:34)
[2022-11-05] MEDS ORDERED: NA CHLORIDE 0.9% 50 ML IV ONE (23:35)
--- NOTE | 2022-11-06 00:26 | ER ---
Nurse's Notes [facility] [place] Name: Rainer Cook Age: 22 yrs Sex: Male : 2000 Arrival Date: 11/05/2022 Time: 19:04 Bed 20 Private MD: Diagnosis: Nausea with vomiting, unspecified;Diarrhea, unspecified;UTI/ Urinary tract infection, site not specified Presentation: 11/05 19:48 Chief complaint: Patient states: "I was at a family's house yesterday and I ate a lot tw5 of food maybe too much food. I started to feel ill around 1 AM and I have been throwing up all day.". Coronavirus screen: Vaccine status: Patient reports being unvaccinated. Ebola Screen: Patient negative for fever greater than or equal to 101.5 degrees Fahrenheit, and additional compatible Ebola Virus Disease symptoms Patient denies exposure to infectious person. Patient denies travel to an Ebola-affected area in the 21 days before illness onset. Initial Sepsis Screen: Does the patient meet any 2 criteria? HR > 90 bpm. Does the patient have a suspected source of infection? No. Patient's initial sepsis screen is negative. Risk Assessment: Do you want to hurt yourself or someone else? Patient reports no desire to harm self or others. Onset of symptoms was November 05, 2022 at 01:00. 19:48 Method Of Arrival: Ambulatory tw5 19:48 Acuity: REI 3 tw5 Triage Assessment: 19:49 General: Appears ill, Behavior is calm, cooperative, appropriate for age. Pain: Denies tw5 pain. GI: Abdomen is non-distended, Reports nausea, vomiting. Historical: - Allergies: 19:49 No Known Allergies; tw5 - Home Meds: 19:49 Advair Diskus Inhl [Active]; tw5 - PMHx: 19:49 Asthma; tw5 - PSHx: 19:49 right knee; tw5 - Immunization history:: Flu vaccine is not up to date. - Social history:: Smoking status: Patient denies any tobacco usage or history of. Screenin:03 [facility] ED Fall Risk Assessment (Adult) History of falling in the last 3 months, jj7 including since admission No falls in past 3 months (0 pts) Confusion or Disorientation No (0 pts) Intoxicated or Sedated No (0 pts) Impaired Gait No (0 pts) Mobility Assist Device Used No (0 pt) Altered Elimination No (0 pt) Score/Fall Risk Level 0 - 2 = Low Risk. Abuse screen: Denies threats or abuse. Nutritional screening: No deficits noted. Tuberculosis screening: No symptoms or risk factors identified. Assessment: 20:03 General: Appears in no apparent distress. uncomfortable, ill, slender, Behavior is jj7 calm, cooperative, appropriate for age. Pain: Complains of pain in abdomen. GI: Bowel sounds present X 4 quads. Abd is soft X 4 quads Abd is non tender X 4 quads Reports cramping, diarrhea, nausea, vomiting. 23:35 Reassessment: PO CHALLENGE- PT TOLERATED PO FLUIDS WITH NO NAUSEA OR VOMITING. PT jj7 STATES HE DOESN'T FEEL NAUSEATED ANY MORE. Vital Signs: 19:48 BP 155 / 100; Pulse 109; Resp 18; Temp 98.8; Pulse Ox 97% on R/A; Weight 70.31 kg; tw5 Height 5 ft. 9 in. (175.26 cm); Pain 0/10; 20:03 BP 133 / 72; Pulse 74; Resp 20; Pulse Ox 99% ; jj7 21:00 BP 146 / 97; Pulse 67; Resp 18; Pulse Ox 100% ; Pain 0/10; jj7 22:00 BP 130 / 70; Pulse 84; Resp 17; Pulse Ox 99% ; jj7 23:00 BP 124 / 63; Pulse 78; Resp 16; Pulse Ox 100% ; Pain 0/10; jj7 04 00:00 BP 118 / 65; Pulse 70; Resp 16; Pulse Ox 100% ; Pain 0/10; jj7 01:05 BP 112 / 63; Pulse 64; Resp 18; Pulse Ox 99% on R/A; ll3 11/05 19:48 Body Mass Index 22.89 (70.31 kg, 175.26 cm) tw5 ED Course: 11/05 19:04 Patient arrived in ED. rg4 19:49 Triage completed. tw5 19:49 Arm band placed on. tw5 20:03 Avril Francisco, WOJCIECH is Primary Nurse. jj7 20:03 Patient has correct armband on for positive identification. Placed in gown. Bed in low jj7 position. Call light in reach. Side rails up X 1. 20:03 Inserted saline lock: 20 gauge in right antecubital area, using aseptic technique. jj7 20:05 Ian Pineda PA is PHCP. cp 20:05 Jed Houston MD is Attending Physician. cp 20:37 CBC with Diff Sent. jj7 20:37 CMP Sent. jj7 20:37 Lipase Sent. jj7 20:37 Urine Microscopic Only Sent. jj7 21:04 CT Abd/Pelvis - IV Contrast Only In Process Unspecified. EDMS 23:29 Blood Culture Adult (2) Sent. jj7 23:29 Procalcitonin Sent. jj7 23:29 Lactate w/ 2H reflex if indic. Sent. jj7 11/06 01:05 No provider procedures requiring assistance completed. IV discontinued, intact, ll3 bleeding controlled, No redness/swelling at site. Pressure dressing applied. Administered Medications: 11/05 20:25 Drug: NS 0.9% 1000 ml Route: IV; Rate: 1 bolus; Site: right antecubital; jj7 21:09 Follow up: IV Status: Completed infusion jj7 20:25 Drug: Pepcid (famotidine) 20 mg Route: IVP; Site: right antecubital; jj7 20:25 Drug: Zofran (Ondansetron) 4 mg Route: IVP; Site: right antecubital; jj7 23:35 Drug: Rocephin - (cefTRIAXone) 1 grams Route: IVPB; Infused Over: 30 mins; Site: right [facility] antecubital; 11/06 00:21 Follow up: IV Status: Completed infusion jj7 11/05 23:36 Drug: NS 0.9% 1000 ml Route: IV; Rate: 1 bolus; Site: right antecubital; jj7 Medication: 20:03 VIS not applicable for this client. jj7 Outcome: 11/06 00:25 Discharge ordered by . cp 01:05 Discharged to home ambulatory, with family. ll3 01:05 Condition: stable 01:05 Discharge instructions given to patient, Instructed on discharge instructions, follow up and referral plans. medication usage, Demonstrated understanding of instructions, follow-up care, medications, Prescriptions given X 2. 01:06 Patient left the ED. ll3 Signatures: Dispatcher [employer] SOLOMONDE Ian Pineda PA PA cp Garcia, Rubi rg4 Pura Shine tw5 Kojo Alvarado RN RN ll3 Avril Francisco RN RN jj7
--- NOTE | 2022-11-06 00:26 | EDPHYS ---
Physician Documentation [facility] Name: Rainer Cook Age: 22 yrs Sex: Male : 2000 Arrival Date: 11/05/2022 Time: 19:04 Bed 20 Private MD: ED Physician Jed Houston HPI: 11/05 20:20 This 22 yrs old Black Male presents to ER via Ambulatory with complaints of Abdominal cp Pain, Vomiting. 20:20 The patient presents with abdominal pain. Onset: The symptoms/episode began/occurred cp this morning. 20:20 Associated signs and symptoms: Pertinent positives: nausea and vomiting, anorexia, cp diarrhea, Pertinent negatives: blood in stools, fever, shortness of breath, testicular pain, vomiting blood. The symptoms are described as constant. Severity of pain: in the emergency department the pain is unchanged despite home interventions. Historical: - Allergies: 19:49 No Known Allergies; tw5 - Home Meds: 19:49 Advair Diskus Inhl [Active]; tw5 - PMHx: 19:49 Asthma; tw5 - PSHx: 19:49 right knee; tw5 - Immunization history:: Flu vaccine is not up to date. - Social history:: Smoking status: Patient denies any tobacco usage or history of. ROS: 20:30 Constitutional: Negative for body aches, chills, fever, poor PO intake. cp 20:30 Eyes: Negative for injury, pain, redness, and discharge. cp 20:30 ENT: Negative for drainage from ear(s), ear pain, sore throat, difficulty swallowing, cp difficulty handling secretions. 20:30 Cardiovascular: Negative for chest pain, edema, palpitations. 20:30 Respiratory: Negative for cough, shortness of breath, wheezing. 20:30 Abdomen/GI: Positive for abdominal pain, nausea, vomiting, diarrhea, anorexia, Negative for constipation, hematemesis, black/tarry stool, rectal bleeding. 20:30 Neuro: Negative for altered mental status, headache. 20:30 All other systems are negative. Exam: 20:25 Constitutional: The patient appears in no acute distress, alert, awake, non-toxic, well cp developed, well nourished, uncomfortable. 20:25 Head/Face: Normocephalic, atraumatic. cp 20:25 Eyes: Periorbital structures: appear normal, Conjunctiva: normal, no exudate, no injection, Sclera: no appreciated abnormality, Lids and lashes: appear normal, bilaterally. 20:25 ENT: External ear(s): are unremarkable, Nose: is normal, Mouth: Lips: dry, Oral mucosa: dry, Posterior pharynx: Airway: no evidence of obstruction, patent, erythema, is not appreciated, exudate, is not appreciated. 20:25 Neck: ROM/movement: is normal, is supple, without pain, no range of motions limitations. 20:25 Chest/axilla: Inspection: normal. 20:25 Cardiovascular: Rate: normal, Rhythm: regular. 20:25 Respiratory: the patient does not display signs of respiratory distress, Respirations: normal, no use of accessory muscles, no retractions, labored breathing, is not present, Breath sounds: are clear throughout, no decreased breath sounds, no stridor, no wheezing. 20:25 Abdomen/GI: Inspection: abdomen appears normal, Bowel sounds: active, all quadrants, Palpation: soft, in all quadrants, moderate abdominal tenderness, in all quadrants, rebound tenderness, is not appreciated, voluntary guarding, is elicited in all quadrants, involuntary guarding, is not appreciated. 20:25 Back: pain, is absent, ROM is normal. 20:25 Neuro: Orientation: to person, place \T\ time. Mentation: is normal, Motor: moves all fours, strength is normal, Sensation: is normal. Vital Signs: 19:48 BP 155 / 100; Pulse 109; Resp 18; Temp 98.8; Pulse Ox 97% on R/A; Weight 70.31 kg; tw5 Height 5 ft. 9 in. (175.26 cm); Pain 0/10; 20:03 BP 133 / 72; Pulse 74; Resp 20; Pulse Ox 99% ; jj7 21:00 BP 146 / 97; Pulse 67; Resp 18; Pulse Ox 100% ; Pain 0/10; jj7 22:00 BP 130 / 70; Pulse 84; Resp 17; Pulse Ox 99% ; jj7 23:00 BP 124 / 63; Pulse 78; Resp 16; Pulse Ox 100% ; Pain 0/10; jj7 11/06 00:00 BP 118 / 65; Pulse 70; Resp 16; Pulse Ox 100% ; Pain 0/10; jj7 01:05 BP 112 / 63; Pulse 64; Resp 18; Pulse Ox 99% on R/A; ll3 11/05 19:48 Body Mass Index 22.89 (70.31 kg, 175.26 cm) tw5 MDM: 11/05 20:10 Patient medically screened. cp 21:00 Differential diagnosis: appendicitis, cholecystitis, Cholelithiasis, diverticulitis, cp gastritis, Pyelonephritis, Ureterolithiasis, urinary tract infection, colitis. 11/06 00:25 Data reviewed: vital signs, nurses notes, lab test result(s), radiologic studies, CT cp scan. 00:25 Counseling: I had a detailed discussion with the patient and/or guardian regarding: the cp historical points, exam findings, and any diagnostic results supporting the discharge/admit diagnosis, lab results, radiology results, to return to the emergency department if symptoms worsen or persist or if there are any questions or concerns that arise at home. Response to treatment: the patient's symptoms have markedly improved after treatment, VSS. Nausea and pain markedly improved, patient observed sleeping in exam rrom. Discussed results of labs showing elevated WBC of 24 and uti. Recommend continued observation. Patient declines and requests discharge and can return to ED worsening symptoms. 11/05 20:15 Order name: CBC with Diff; Complete Time: 22:51 cp 11/05 21: Interpretation: Normal except: WBC 24.80; RBC 6.18; HGB 18.0; HCT 54.1; ROSY% 91.8; LYM% cp 4.6; NEUT A 22.7. 11/05 20:15 Order name: CMP; Complete Time: 21:25 cp 11/05 21:26 Interpretation: Normal except: GLUC 129; BUN 19; CRE 1.50; GFR 68; CA 10.6; TP 10.0; cp ALB 5.1; GLOB 4.9; A/G 1.0. 11/05 20:15 Order name: Lipase; Complete Time: 21:25 cp 11/05 20:15 Order name: Urine Microscopic Only; Complete Time: 21: cp 11/05 21: Interpretation: Normal except: UWBC 20-50; UBACT >50; MUCUS 4+; UWBC Clump Few. cp 11/05 20:42 Order name: Urine Dipstick-Ancillary; Complete Time: 21: EDMS 11/05 21:26 Interpretation: Normal except: UKET Trace; UBLD 1+; UPROT 3+. cp 11/05 20:58 Order name: Urine Culture EDKY 11/05 20:15 Order name: CT Abd/Pelvis - IV Contrast Only; Complete Time: 21:25 cp 11/05 21:25 Interpretation: Report reviewed. cp 11/05 20:59 Order name: Manual Differential; Complete Time: 22:51 EDKY 11/05 22:51 Interpretation: Normal except: LYM 8; SEGS 87. cp 11/05 21:43 Order name: Lactate w/ 2H reflex if indic.; Complete Time: 00:16 cp 11/06 00:16 Interpretation: Reviewed. 11/05 21:43 Order name: Procalcitonin; Complete Time: 00:16 cp 11/06 00:16 Interpretation: Procalcitonin 0.17; Reviewed. cp 11/05 21:43 Order name: Blood Culture Adult (2) cp 11/05 20:15 Order name: IV Saline Lock; Complete Time: 20:25 cp 11/05 20:15 Order name: Labs collected and sent; Complete Time: 20:37 cp 11/05 22:52 Order name: PO challenge; Complete Time: 23:35 cp Administered Medications: 11/05 20:25 Drug: NS 0.9% 1000 ml Route: IV; Rate: 1 bolus; Site: right antecubital; jj7 21:09 Follow up: IV Status: Completed infusion j 20:25 Drug: Pepcid (famotidine) 20 mg Route: IVP; Site: right antecubital; jj7 20:25 Drug: Zofran (Ondansetron) 4 mg Route: IVP; Site: right antecubital; j7 23:35 Drug: Rocephin - (cefTRIAXone) 1 grams Route: IVPB; Infused Over: 30 mins; Site: right [facility] antecubital; 11/06 00:21 Follow up: IV Status: Completed infusion j 11/05 23:36 Drug: NS 0.9% 1000 ml Route: IV; Rate: 1 bolus; Site: right antecubital; jj7 Disposition Summary: 11/06/22 00:25 Discharge Ordered Location: Home cp Problem: new cp Symptoms: have improved cp Condition: Stable cp Diagnosis - Nausea with vomiting, unspecified cp - Diarrhea, unspecified cp - UTI/ Urinary tract infection, site not specified cp Followup: cp - With: Private Physician - When: 1 - 2 days - Reason: Recheck today's complaints Discharge Instructions: - Discharge Summary Sheet cp - Food Choices to Help Relieve Diarrhea, Adult cp - Diarrhea, Adult cp - Nausea and Vomiting, Adult cp - Urinary Tract Infection, Adult cp Forms: - Medication Reconciliation Form cp - Thank You Letter cp - Antibiotic Education cp - Prescription Opioid Use cp Prescriptions: - Zofran 4 mg Oral Tablet - take 1 tablet by ORAL route every 12 hours As needed; 20 tablet; Refills: 0, cp Product Selection Permitted - cefpodoxime 200 mg Oral Tablet - take 1 tablet by ORAL route every 12 hours with food; 20 tablet; Refills: 0, cp Product Selection Permitted Signatures: Dispatcher [employer] EDMS Ian Pineda PA PA cp Wood, Tiffany tw5 Avril Francisco RN RN jj7 Corrections: (The following items were deleted from the chart) 21:26 21:25 Normal except: GLUC 129; BUN 19; CRE 1.50; GFR 68. cp cp 21:26 21:26 Normal except: GLUC 129; BUN 19; CRE 1.50; GFR 68; CA 10.6. cp cp
[2022-11-06 01:27] VITALS: TEMP 98.8
[2022-11-06 01:35] VITALS: BP 112/63; O2SAT 99
== END 2022-11-06 01:06 | disposition home or self-care (01) ==
LOC: ER 19:01
DX: N39.0 Urinary tract infection, site not specified (principal); R19.7 Diarrhea, unspecified
CPT/HCPCS: 96365; 96361; 87040 ×2; 87088; 85025; 87086; 36415; 83605; 83690; 80053; 84145; 74177; 96375; 99284; Q9967; J7030 ×2; J2405; 81003; 81015

== ENCOUNTER 2023-03-25 19:02 | Emergency (ER) | payer OTHER ==
--- OUTSIDE RECORDS SUMMARY | 2023-03-25 19:05 | XMS REPORT | Continuity of Care Document ---
:2000 Author Organization [facility] t Address [address] [place] [address] [place] [id number] Care Team Providers Name Role Phone Pcp, Patient Does Not Have A Primary Care Physician +[id number] JOSTIN GUZMAN Attending Clinician Unavailable Jostin Guzman MD Attending Clinician JOSE DAVIS Attending Clinician Unavailable Jose Fernandez Attending Clinician Only, Adc Test Attending Clinician Unavailable Doctor Unassigned, [place] Attending Clinician Unavailable Meir Bills MD Attending Clinician MEIR BILLS Attending Clinician Unavailable GILBERT ROD Attending Clinician Unavailable JOSTIN GUZMAN Admitting Clinician Unavailable Jostin Guzman MD Admitting Clinician Payers Payer Name Policy Type Policy Number Effective Date Expiration Date S tatum [place] [employer] [id number] 2020 HEALTH 00:00:00 Problems Condition Condition Condition [...] Quantity Comments Source Exposure to Not sure [facility] SARS-CoV-2 (event) Medica l Branch Tobacco use and 2020-08-03 2020-08-03 Never used [facility] exposure 00:00:00 00:00:00 Medical Branch Sex Assigned At [birth year] [facility] 00:00:00 00:00:00 Medical Branch Smoking Status Start Date Stop Date Source Never smoker [facility] Medications Ordered Filled Start Stop Current Ordering Indication Dosage Frequency Signature Comments Components Source Medication Medication Date Date Medication? Clinician (SIG) Name Name cetirizine Yes 10mg Take 10 mg U nivers 10 mg 9-20 by mouth ity of tablet 00:00: daily. [facility] [place] cetirizine Yes 10mg Take 10 mg U nivers 10 mg 9-20 by mouth ity of tablet 00:00: daily. [facility] PROAIR HFA Yes INHALE 2 Uni vers 90 8-19 [...] 21:29:00 110 mm[Hg] Univer sity of pressure [facility] Diastolic blood 2021-09-19 21:29:00 75 mm[Hg] Unive rsity of [facility] Heart rate 2021-09-19 21:29:00 53 /min [facility] Respiratory rate 2021-09-19 21:29:00 20 /min Univ ersity [facility] Body height 2021-09-19 21:29:00 172.7 cm [facility] Body weight 2021-09-19 21:29:00 77.701 kg [facility] BMI 2021-09-19 21:29:00 26.05 kg/m2 [facility] Body mass index 2021-09-19 21:29:00 83.90 % Unive rsity of (BMI) [Percentile] [facility] ical Per age and sex Branch Oxygen saturation in 2021-09-19 21:29:00 98 /min University Arterial blood by [facility] Pulse oximetry Branch Procedures This patient has no known procedures. Encounters Start End Encounter Admission Attending Care Care Encounter Source Date/Time Date/Time Type Type Clinicians Facility Department ID 2021-09-03 Outpatient [facility] SOR [id number] Univers 07:04:12 [facility] 2021-11-28 2021-11-28 Telephone Tez [facility] [id number] [id number] Univers 00:00:00 00:00:00 Jostin L Balihoo [id number] it y of [place] [id number] Eladio as ALTON?BLEA [phone] Il huan [address] MEDICAL OFFICE BUILDING 2021-11-27 2021-11-27 Outpatient Leila DAVIS [facility] [id number] Univers 13:45:00 13:45:00 [facility] 2021-11-26 2021-11-26 Outpatient Leila DAVIS [facility] [id number] Univers 13:45:00 13:45:00 [facility] 2021-11-23 2021-11-23 [facility] [id number] Univers 08:45:00 08:45:00 [facility] 2021-11-12 2021-11-12 [facility] [id number] Univers 14:00:00 14:00:00 [facility] 2021-09-19 2021-09-19 [facility] [id number] Univers 15:30:00 15:38:[address] [facility] 2021-09-19 2021-09-19 [facility] [id number] Univers 15:14:11 15:38:37 Visit Jostin Buccaneer [id number] it y of [place] [id number] Eladio as ALTON?BLEA [phone] Me huan GUILLAUME [address] [facility] OFFICE [facility] 2021-09-19 2021-09-19 [facility] [id number] Univers 15:30:00 15:30:00 JOSTIN hutson [facility] 2021-08-22 2021-08-22 Office Jose Davis [facility] [id number] Univers 16:06:08 16:46:38 Visit Jostin Guzman [employer] [id number] ity of [place] [id number] Eladio as [place]?Blea [phone] Il huan guillaume [address] [place] [address] 2021-08-22 2021-08-22 [facility] [id number] Univers 15:45:00 15:45:00 [facility] 2021-08-15 2021-08-15 [facility] [id number] Univers 15:00:00 15:00:00 [facility] 2021-07-11 2021-07-11 [facility] [id number] Univers 14:00:00 14:00:00 JOSTIN aquilino [facility] 2021-07-04 2021-07-04 Telephone [facility] 1.2.840.114 [id number] Univers 00:00:00 00:00:00 Jostin Hurd [employer] [id number] it y of [place] [id number] Eladio as [place]?Blea [phone] Il huan guillaume [address] [place] [address] Office [facility] 2021-06-29 2021-06-29 Telephone [facility] [id number] Univers 00:00:00 00:00:00 Jostin Hurd [employer] [id number] it y of [place] [id number] Eladio as [place]?Blea [phone] Il huan guillaume [address] [place] [address] Office [facility] 2021-06-12 2021-06-12 Office [facility] 1.2.840.114 [id number] Univers 14:07:43 14:22:43 Visit Jose [facility] [id number] it y of Surgical [id number] Eladio as Specialti [phone] [facility] es [address] [facility] 2021-06-12 2021-06-12 Outpatient R ARMINDA [facility] [id number] Univers 14:00:00 14:00:00 JOSE ity of [facility] 2021-06-04 2021-06-04 Telephone [facility] 1.2.840.114 [id number] Univers 00:00:00 00:00:00 Jostin [facility] [id number] it y of Surgical [id number] Eladio as Specialti [phone] [facility] [address] [facility] 2021-05-21 2021-05-21 Hospital [facility] [id number] Univers 09:12:00 13:59:00 Encounter Jostin Youssef [id number] [id number] [id number] [facility] [address] [place] 2021-05-21 2021-05-21 Surgery [facility] [id number] Univers 11:29:00 13:30:00 Jostin Youssef [id number] i [id number] [id number] [facility] [address] [place] 2021-05-18 2021-05-18 Laboratory Only, Adc Test [facility] 1.2.840. [id number] Univers 13:57:29 14:12:29 Only Jostin Guzman [id number] it[id number] [place] [facility] [phone] [facility] [address] [place] 2021-05-18 2021-05-18 [facility] [id number] Univers 10:00:00 10:00:00 JOSTIN hutson of [facility] 2021-05-18 2021-05-18 Orders Doctor JAMES 1.2.840.114 [id number] Univers 00:00:00 00:00:00 Only Unassigned, HELADIO [id number] ity of [place] [facility] [id number] Eladio as [id number] [facility] [address] [place] 2021-05-03 2021-05-03 Office [facility] [id number] Univers 10:19:56 10:44:37 Visit Jostin Hurd [facility] [id number] it y of Surgical [id number] Eladio as Specialti [phone] Il dical es [address] [facility] 2021-05-03 2021-05-03 Outpatient [facility] [id number] Univers 10:30:00 10:30:00 JOSTIN ity [facility] 2021-04-25 2021-04-25 Hospital [facility] 1.2.840.114 [id number] Univers 14:00:00 23:59:00 Encounter Jostin Youssef [id number] ity of [place] [id number] [place] [facility] [id number] [facility] [address] [place] 2021-04-25 2021-04-25 [facility]patient [facility] [id number] Univers 00:00:00 00:00:00 JOSTIN ity [facility] 2021-04-25 2021-04-25 Orders Doctor JAMES [id number] [id number] Univers 00:00:00 00:00:00 Only Unassigned, HELADIO [id number] ity of [place] [facility] [id number] Eladio as [phone] [address] 2021-04-17 2021-04-17 Telephone [facility] 1.2.840.114 [id number] Univers 00:00:00 00:00:00 Jostin Frank [id number] it y of Surgical [id number] Ealdio as Specialti [phone] Il dical es [address] [facility] 2021-04-16 2021-04-16 Office [facility] 1.2.840.114 [id number] Univers 14:28:09 15:31:11 Visit Jose S [facility] [id number] it y of Surgical [id number] Eladio as Specialti [phone] Il dical es [address] [facility] 2021-04-16 2021-04-16 Outpatient R ARMINDA [facility] [id number] Univers 15:15:00 15:15:00 JOSE ity of [facility] 2020-09-08 2020-09-08 Telephone [facility] 1.2.840.114 [id number] Univers 00:00:00 00:00:00 Jostin Hurd [facility] [id number] it y of Surgical [id number] Eladio as Specialti [phone] Il dical es [address] [facility] 2020-08-29 2020-08-29 [facility] [id number] Univers 00:00:00 00:00:00 JOSTIN ity [facility] 2020-08-15 2020-08-15 Orders Doctor JAMES 1.2.840.114 [id number] Univers 00:00:00 00:00:00 Only Unassigned, HELADIO [id number] ity of [place] [facility] [id number] Eladio as [phone] [address] 2020-08-09 2020-08-09 Telephone [facility] 1.2.840.114 [id number] Univers 00:00:00 00:00:00 Jostin Hurd [facility] [id number] it y of Surgical [id number] Eladio as Specialti [phone] Me dical es [address] [facility] 2020-08-03 2020-08-03 Office [facility] 1.2.840.114 [id number] Univers 15:18:55 15:33:55 Visit Jose Ashby [facility] [id number] it y of Surgical [id number] Eladio as Specialti [id number] Il dical es [address] [facility] 2020-08-03 2020-08-03 [facility] [id number] Univers 15:00:00 15:00:00 JOSE itaquilino of [facility] 2020-08-03 2020-08-03 Gris Davis [facility] 1.2.840.114 [id number] Univers 00:00:00 00:00:00 (Out) Jose Ashby [facility] [id number] it y of Surgical [id number] Eladio as Specialti [phone] Me dical es [address] [facility] 2020-07-31 2020-07-31 Orders Doctor JAMES 1.2.840.114 [id number] Univers 00:00:00 00:00:00 Only Unassigned, HELADIO [id number] ity of [place] [facility] [id number] Eladio as [phone] [address] 2020-07-28 2020-07-28 [facility] 1.2.840.114 [id number] Univers 16:30:00 23:59:00 Encounter Mier Youssef [id number] ity of [place] [id number] [place] [facility] [id number] [facility] [address] [place] 2020-07-28 2020-07-28 [facility] [id number] Univers 00:00:00 00:00:00 MEIR hutson [facility] 2020-07-28 2020-07-28 Orders Doctor JAMES 1.2.840.114 [id number] Univers 00:00:00 00:00:00 Only Unassigned, HELADIO [id number] ity of [place] [facility] [id number] Eladio as [phone] [address] 2020-06-05 2020-06-05 Outpatient R VIOLA [facility] [id number] Univers 14:00:00 14:00:00 GILBERT hutson of [facility] Results This patient has no known results.
[2023-03-25] MEDS ORDERED: ONDANSETRON 4 MG/2 ML VIAL ONE (20:03)
[2023-03-25 20:09] LABS: Absolute Lymphocytes (CBC) 0.8 K/uL (0.7-4.9); Hematocrit 50.2 % (39.6-49.0); Lymphocytes % 3.4 % (15.3-44.8); MPV 10.2 fL (7.6-11.3)
[2023-03-25 20:25] LABS: Albumin 4.7 g/dL (3.4-5.0); Bilirubin Total 0.8 mg/dL (0.2-1.0); Potassium 3.9 mEq/L (3.5-5.1); Protein, Total 9.2 g/dL (6.4-8.2)
[2023-03-25] MEDS ORDERED: Ringers Lactate 1,000 ML IV ONE (20:52)
--- NOTE | 2023-03-25 22:14 | RAD REPORT ---
EXAM DESCRIPTION: CT - Abdomen Pelvis W Contrast - 03/25/2023 9:42 pm CLINICAL HISTORY: abdominal pain COMPARISON: Abdomen Pelvis W Contrast dated 11/05/2022; Abdomen Pelvis W Contrast dated 05/31/2022 TECHNIQUE: Thin cut axial CT imaging of the abdomen and pelvis was performed following intravenous a dministration of 100 mL Isovue 300. Multiplanar reformats were generated and reviewed. All CT scans are performed using dose optimization technique as appropriate and may include automated exposure control or mA/KV adjustment according to patient size. FINDINGS: No suspicious findings in the lung bases. The liver, spleen, and pancreas show no suspicious findings. Gallbladder and biliary tree are also wi thout suspicious finding. Symmetric renal function is seen with no hydronephrosis or suspicious renal mass. No dilated bowel loops or bowel wall thickening. Appendix is unremarkable. No free air, free fluid or inflammatory stranding. No hernia, mass or bulky lymphadenopathy. The urinary bladder is without sig nificant finding. No suspicious bony findings. IMPRESSION: No acute intra-abdominal process.
[2023-03-25 22:16] LABS: Blood Morphology Comment NOT SEEN (NOT SEEN); Platelet Estimate ADEQ; White Blood Cell Scan OK (OK)
--- NOTE | 2023-03-26 00:20 | ER ---
Nurse's Notes [facility] [place] Name: Rainer Cook Age: 22 yrs Sex: Male : 2000 Arrival Date: 03/25/2023 Time: 19:02 Bed 20 Private MD: Diagnosis: Vomiting;Diarrhea, unspecified Presentation: 03/25 19:08 Chief complaint: EMS states: n/v/d since 5 am, think she ate something bad. Coronavirus iw screen: Client presents with at least one sign or symptom that may indicate coronavirus-19. Ebola Screen: Patient negative for fever greater than or equal to 101.5 degrees Fahrenheit, and additional compatible Ebola Virus Disease symptoms Patient denies exposure to infectious person. Patient denies travel to an Ebola-affected area in the 21 days before illness onset. No symptoms or risks identified at this time. 19:08 Method Of Arrival: EMS: [facility] iw 19:08 Acuity: REI 3 iw 19:08 Initial Sepsis Screen: Does the patient meet any 2 criteria? No. Patient's initial iw sepsis screen is negative. Does the patient have a suspected source of infection? No. Patient's initial sepsis screen is negative. Risk Assessment: Do you want to hurt yourself or someone else? Patient reports no desire to harm self or others. Onset of symptoms was March 25, 2023. Historical: - Allergies: 19:09 No Known Allergies; iw - Home Meds: 19:09 Advair Diskus Inhl [Active]; iw - PMHx: 19:09 Asthma; iw - PSHx: 19:09 right knee; iw - Social history:: Smoking status: Patient denies any tobacco usage or history of. Patient uses. Screenin:59 [facility] ED Fall Risk Assessment (Adult) History of falling in the last 3 months, mb9 including since admission No falls in past 3 months (0 pts) Confusion or Disorientation No (0 pts) Intoxicated or Sedated No (0 pts) Impaired Gait No (0 pts) Mobility Assist Device Used No (0 pt) Altered Elimination No (0 pt) Score/Fall Risk Level 0 - 2 = Low Risk Oriented to surroundings, Maintained a safe environment, Educated pt \T\ family on fall prevention, incl call for assistance when getting out of bed. Abuse screen: Denies threats or abuse. Nutritional screening: No deficits noted. Tuberculosis screening: No symptoms or risk factors identified. Assessment: 19:55 General: Appears uncomfortable, Behavior is calm, cooperative. Pain: Complains of pain ha1 in abdomen Pain does not radiate. Pain currently is 6 out of 10 on a pain scale. Quality of pain is described as crampy. Neuro: Level of Consciousness is awake, alert, obeys commands, Oriented to person, place, time, situation. Cardiovascular: Patient's skin is warm and dry. Respiratory: Airway is patent Respiratory effort is even, unlabored, Respiratory pattern is regular, symmetrical. GI: Abdomen is flat, non-distended, Bowel sounds present X 4 quads. Abd is soft and non tender X 4 quads. Reports lower abdominal pain, nausea, vomiting. : No signs and/or symptoms were reported regarding the genitourinary system. Derm: Skin is normal. Musculoskeletal: Circulation, motion, and sensation intact. Range of motion: intact in all extremities. 20:50 Reassessment: Patient and/or family updated on plan of care and expected duration. Pain ha1 level reassessed. Patient is alert, oriented x 3, equal unlabored respirations, skin warm/dry/pink. Patient states symptoms have improved. 21:50 Reassessment: Patient and/or family updated on plan of care and expected duration. Pain ha1 level reassessed. Patient is alert, oriented x 3, equal unlabored respirations, skin warm/dry/pink. reports body ache. 22:50 Reassessment: Patient and/or family updated on plan of care and expected duration. Pain ha1 level reassessed. Patient is alert, oriented x 3, equal unlabored respirations, skin warm/dry/pink. 23:50 Reassessment: Patient and/or family updated on plan of care and expected duration. Pain ha1 level reassessed. Patient is alert, oriented x 3, equal unlabored respirations, skin warm/dry/pink. 03/26 00:50 Reassessment: Patient and/or family updated on plan of care and expected duration. Pain ha1 level reassessed. Patient is alert, oriented x 3, equal unlabored respirations, skin warm/dry/pink. Patient states feeling better. Patient states symptoms have improved. Vital Signs: 03/25 19:08 BP 137 / 77; Pulse 93; Resp 16; Temp 98; Pulse Ox 97% on R/A; Weight 77.11 kg; Height 5 iw ft. 8 in. ; Pain 7/10; 20:15 BP 156 / 97; Pulse 62; Resp 19 S; Pulse Ox 100% on R/A; ha1 21:00 BP 137 / 89; Pulse 78; Resp 15 S; Pulse Ox 100% on R/A; ha1 22:00 BP 152 / 99; Pulse 62; Resp 20 S; Pulse Ox 97% on R/A; ha1 23:50 BP 149 / 94; Pulse 68; Resp 17 S; Pulse Ox 97% on R/A; ha1 03/26 00:50 BP 142 / 57; Pulse 65; Resp 16 S; Pulse Ox 98% on R/A; ha1 03/25 19:08 Body Mass Index 25.85 (77.11 kg, 172.72 cm) iw 03/25 19:08 Pain Scale: Adult iw ED Course: 03/25 19:04 Patient arrived in ED. jj6 19:07 Ancelmo Mccormick PA is PHCP. m 19:07 Jed Houston MD is Attending Physician. [facility] 19:08 Triage completed. iw 19:09 Arm band placed on. iw 19:58 Placed in gown. Bed in low position. Call light in reach. Side rails up X 1. Client mb9 placed on continuous cardiac and pulse oximetry monitoring. NIBP monitoring applied. 19:58 CBC with Diff Sent. mb9 19:58 CMP Sent. mb9 19:58 Lipase Sent. mb9 19:58 Inserted saline lock: 20 gauge in right antecubital area, using aseptic technique. mb9 20:32 Ailin Diallo, RN is Primary Nurse. ha1 21:44 CT Abd/Pelvis - IV Contrast Only In Process Unspecified. EDMS 03/26 00:51 No provider procedures requiring assistance completed. IV discontinued, intact, ha1 bleeding controlled, No redness/swelling at site. Pressure dressing applied. Administered Medications: 03/25 19:58 Drug: Ondansetron IVP 4 mg Route: IVP; Site: right antecubital; mb9 20:30 Follow up: Response: No adverse reaction; Nausea is decreased ha1 20:19 Drug: Lactated Ringers Solution IV 1000 ml Route: IV; Rate: 1000 bolus; Site: right ha1 antecubital; 23:00 Follow up: Response: No adverse reaction; IV Status: Completed infusion; IV Intake: ha1 1000ml Medication: 19:59 VIS not applicable for this client. mb9 Intake: 23:00 IV: 1000ml; Total: 1000ml. ha1 Outcome: 03/26 00:20 Discharge ordered by MD. thakur 00:51 Discharged to home ambulatory. ha1 00:51 Condition: stable 00:51 Discharge instructions given to patient, Instructed on discharge instructions, follow up and referral plans. medication usage, Demonstrated understanding of instructions, follow-up care, medications, Prescriptions given X 2. 00:52 Patient left the ED. 1 Signatures: Dispatcher [employer] EDMS Ancelmo Mccormick PA PA jmm Williams, Irene RN Nieves Seo Heidy, RN RN ha1 Lenore Cox RN WOJCIECH mb9
--- NOTE | 2023-03-26 00:21 | EDPHYS ---
Physician Documentation [facility] Name: Rainer Cook Age: 22 yrs Sex: Male : 2000 Arrival Date: 03/25/2023 Time: 19:02 Bed 20 Private MD: ED Physician Jed Houston HPI: 03/26 00:10 This 22 yrs old Black Male presents to ER via EMS with complaints of Abdominal Pain, jmm Nausea/Vomiting. 00:10 The patient presents with abdominal pain. Onset: The symptoms/episode began/occurred jmm this morning. This is a 22 year old male with a history of asthma that presents to the ED with complaints of generalized abdominal pain, vomiting, diarrhea beginning this morning. . Patient denies any recent travel. Denies any recent antibiotics, denies infectious exposure.. Historical: - Allergies: 03/25 19:09 No Known Allergies; iw - Home Meds: 19:09 Advair Diskus Inhl [Active]; iw - PMHx: 19:09 Asthma; iw - PSHx: 19:09 right knee; iw - Social history:: Smoking status: Patient denies any tobacco usage or history of. Patient uses. ROS: 03/26 00:10 Constitutional: Negative for fever, chills, and weight loss, Cardiovascular: Negative jmm for chest pain, palpitations, and edema, Respiratory: Negative for shortness of breath, cough, wheezing, and pleuritic chest pain. Abdomen/GI: Positive for abdominal pain, nausea and vomiting, diarrhea. All other systems are negative. Exam: 00:10 Constitutional: This is a well developed, well nourished patient who is awake, alert, jmm and in no acute distress. Head/Face: atraumatic. Eyes: EOMI, no conjunctival erythema appreciated ENT: Moist Mucus Membranes Neck: Trachea midline, Supple Chest/axilla: Normal chest wall appearance and motion. Cardiovascular: Regular rate and rhythm. No edema appreciated Respiratory: Normal respirations, no respiratory distress appreciated 00:10 Back: Normal ROM Skin: General appearance color normal MS/ Extremity: Moves all extremities, no obvious deformities appreciated, no edema noted to the lower extremities Neuro: Awake and alert Psych: Behavior is normal, Mood is normal, Patient is cooperative and pleasant 00:10 Abdomen/GI: Inspection: abdomen appears normal, Bowel sounds: normal, Palpation: soft, mild abdominal tenderness, in all quadrants. Vital Signs: 03/25 19:08 BP 137 / 77; Pulse 93; Resp 16; Temp 98; Pulse Ox 97% on R/A; Weight 77.11 kg; Height 5 iw ft. 8 in. ; Pain 7/10; 20:15 BP 156 / 97; Pulse 62; Resp 19 S; Pulse Ox 100% on R/A; ha1 21:00 BP 137 / 89; Pulse 78; Resp 15 S; Pulse Ox 100% on R/A; ha1 22:00 BP 152 / 99; Pulse 62; Resp 20 S; Pulse Ox 97% on R/A; ha1 23:50 BP 149 / 94; Pulse 68; Resp 17 S; Pulse Ox 97% on R/A; ha1 03/26 00:50 BP 142 / 57; Pulse 65; Resp 16 S; Pulse Ox 98% on R/A; ha1 03/25 19:08 Body Mass Index 25.85 (77.11 kg, 172.72 cm) 03/25 19:08 Pain Scale: Adult MDM: 03/25 19:07 Patient medically screened. [facility] 03/26 00:10 Differential diagnosis: non-specific abd pain, Gastroenteritis, pancreatitis, colitis. [facility] Data reviewed: vital signs, nurses notes, lab test result(s), radiologic studies, CT scan. Consideration of Admission/Observation Escalation of care including admission/observation considered. I considered the following discharge prescriptions or medication management in the emergency department Medications were administered in the Emergency Department. See MAR. Counseling: I had a detailed discussion with the patient and/or guardian regarding: the historical points, exam findings, and any diagnostic results supporting the discharge/admit diagnosis, lab results, radiology results, the need for outpatient follow up, to return to the emergency department if symptoms worsen or persist or if there are any questions or concerns that arise at home. ED course: CT was negative for acute finding. Able to tolerate p.o. in the ED. Advised follow-up PCP and was given strict return precautions. Patient sugars Medicare.. 03/25 19: Order name: CBC with Diff; Complete Time: 22:17 [facility] 03/25 19:07 Order name: CMP; Complete Time: 20:32 [facility] 03/25 19: Order name: Lipase; Complete Time: 20:32 [facility] 03/25 22:16 Order name: CBC Smear Scan; Complete Time: 22:17 [facility] 03/25 20:32 Order name: CT Abd/Pelvis - IV Contrast Only; Complete Time: 22:17 [facility] 03/25 19:07 Order name: IV Saline Lock; Complete Time: 19:58 [facility] 03/25 19:07 Order name: Labs collected and sent; Complete Time: 19:58 [facility] 03/25 22:18 Order name: PO challenge; Complete Time: 22:45 [facility] Administered Medications: 03/25 19:58 Drug: Ondansetron IVP 4 mg Route: IVP; Site: right antecubital; mb9 20:30 Follow up: Response: No adverse reaction; Nausea is decreased ha1 20:19 Drug: Lactated Ringers Solution IV 1000 ml Route: IV; Rate: 1000 bolus; Site: right ha1 antecubital; 23:00 Follow up: Response: No adverse reaction; IV Status: Completed infusion; IV Intake: ha1 1000ml Disposition Summary: 03/26/23 00:20 Discharge Ordered Location: Home [facility] Condition: Stable [facility] Diagnosis - Vomiting [facility] - Diarrhea, unspecified [facility] Followup: [facility] - With: Private Physician - When: 2 - 3 days - Reason: Recheck today's complaints, Continuance of care, Re-evaluation by your physician Discharge Instructions: - Discharge Summary Sheet [facility] - Food Choices to Help Relieve Diarrhea, Adult jm - Vomiting, Adult [facility] Forms: - Medication Reconciliation Form [facility] - Thank You Letter [facility] - Antibiotic Education [facility] - Prescription Opioid Use [facility] Prescriptions: - ondansetron 4 mg Oral Tablet,disintegrating - take 1 tablet by ORAL route every 4 hours As needed; 30 tablet; Refills: 0, [facility] Product Selection Permitted - dicyclomine 20 mg Oral Tablet - take 1 tablet by ORAL route 4 times per day As needed; 30 tablet; Refills: 0, [facility] Product Selection Permitted Signatures: Dispatcher [employer] Ancelmo Gay PA PA jmm Williams, Irene RN Ailin Langston RN RN ha1 Lenore Cox RN RN mb9
[2023-03-26 01:46] VITALS: TEMP 98
[2023-03-26 01:57] VITALS: BP 142/57; O2SAT 98
== END 2023-03-26 00:52 | disposition home or self-care (01) ==
LOC: ER 19:02
DX: R11.2 Nausea with vomiting, unspecified (principal); R19.7 Diarrhea, unspecified; R10.84 Generalized abdominal pain
CPT/HCPCS: 85025; 36415; 83690; 80053; 74177; Q9967; J2405; J7120

== ENCOUNTER → 2023-12-15 | Emergency (ER) | payer OTHER, SELFPAY ==
[~2023-12-15] MED LIST: DICYCLOMINE HCL 10 MG CAP ONE; DIPHENOX/ATROP SULF 1 TAB PO ONE; KETOROLAC 30 MG/ML INJ ONE; METOCLOPRAMIDE 10 MG/2mL INJ ONE; MORPHINE 4 MG/ML SYR ONE; NA CHLORIDE 0.9% 2,000 ML ONE; ONDANSETRON 4 MG/2 ML VIAL ONE; PROMETHAZINE 25 MG TABLET ONE
--- OUTSIDE RECORDS SUMMARY | 2023-12-15 20:07 | XMS REPORT | Continuity of Care Document ---
Author Name Unknown Address [address] [place] [address] [facility] Address [address] [place] [address] Care Team Providers Care Household Coordinator Name Role Phone Pcp, Patient Does Not Have A Primary Care Physic elke JOSTIN GUZMAN Attending Clinician UnavailJostin Elliott MD Attending Clinician [phone] JOSE DAVIS Attending Clinician Unavailable Jose Fernandez Attending Clinician [phone] Only, Adc Test Attending Clinician Unavailable Doctor Unassigned, [place] Attending Clinician U Meir Victoria MD Attending Clinician [phone] MEIR BILLS Attending Clinician Unavailable GILBERT ROD Attending Clinician Unavailable JOSTIN GUZMAN Admitting Clinician UnavailJostin Elliott MD Admitting Clinician [phone] Payers Payer Name Policy Type Policy Number Effective Date Expirati on Date Source [facility] [id number] 2020 00:00:00 Problems Condition Name Condition Details Condition Category Status Onset Date Resolution Date Last Treatment Date Treating Clinician Comments Source Rupture of anterior cruciate ligament of right knee Rupture of anterior cruciate ligament of right knee Disease Active 05-03 00:00: 00 [facility] Allergies, Adverse Reactions, Alerts Allergy Name Allergy Type Status Severity Reaction(s) Onset Date Inactive Date Treating Clinician Comments Source ASPIRIN DRUG INGREDI Active Other-Cmnt 05-21 00:00: 00 [facility] Aspirin Propensi ty to adverse reaction s Active Other - See comments 05-21 00:00: [address] [facility] Social History Social Habit Start Date Stop Date Quantity Comments Source Exposure to SARS-CoV-2 (event) Not sure [facility] Tobacco use and exposure 2020-08-03 00:00:00 2020-08-03 00:00:00 Never used [facility] Sex Assigned At 2000 00:00:00 2000 00:00:00 [facility] Smoking Status Start Date Stop Date Source Never smoker [facility] Medications Ordered Medication Name Filled Medication Name Start Date Stop Date Current Medication? Ordering Clinician Indication Dosage Frequency Signature (SIG) Comments Components Source cetirizine 10 mg tablet 07-23 00:00: 00 Yes 10mg Take 10 mg by mouth daily. [facility] cetirizine 10 mg tablet 07-23 00:00: 00 Yes 10mg Take 10 mg by mouth daily. [facility] PROAIR HFA 90 mcg/actuati on inhaler 06-21 00:00: 00 Yes INHALE 2 PUFFS BY MOUTH EVERY 4 HOURS NEEDED FOR SHORTNESS OF BREATH [facility] PROAIR HFA 90 mcg/actuati on inhaler 06-21 00:00: 00 Yes INHALE 2 PUFFS BY MOUTH EVERY 4 HOURS NEEDED FOR SHORTNESS OF BREATH [facility] Vital Signs Vital Name Observation Time Observation Value Comments S ource Systolic blood pressure 2021-09-19 21:29:00 110 mm[Hg] [facility] Diastolic blood pressure 2021-09-19 21:29:00 75 mm[Hg] [facility] Heart rate 2021-09-19 21:29:00 53 /min [facility] Respiratory rate 2021-09-19 21:29:00 20 /min [facility] Body height 2021-09-19 21:29:00 172.7 cm [facility] Body weight 2021-09-19 21:29:00 77.701 kg [facility] BMI 2021-09-19 21:29:00 26.05 kg/m2 [facility] Body mass index (BMI) [Percentile] Per age and sex 2021-09-19 21:29:00 83.90 % [facility] Oxygen saturation in Arterial blood by Pulse oximetry 2021-09-19 21:29:00 98 /min [facility] Encounters Start Date/Time End Date/Time Encounter Type Admission Type Attending Clinicians Care Facility Care Department Encounter ID Source 2021-09-03 07:04:12 Outpatient JOSTIN GUZMAN [facility] [id number] [facility] 2021-11-28 00:00:00 2021-11-28 00:00:00 Telephone Jostin Guzman [facility] [id number] 350.1.13.10 4.2.7.2.[id number] [facility] 2021-11-27 13:45:00 2021-11-27 13:45:00 Outpatient JOSE HENRY [facility] [id number] [facility] 2021-11-26 13:45:00 2021-11-26 13:45:00 Outpatient JOSE HENRY [facility] [id number] [facility] 2021-11-23 08:45:00 2021-11-23 08:45:00 Outpatient JOSE HENRY [facility] [id number] [facility] 2021-11-12 14:00:00 2021-11-12 14:00:00 Outpatient JOSE HENRY [facility] [id number] [facility] 2021-09-19 15:30:00 2021-09-19 15:38:37 Outpatient R JOSTIN GUZMAN [facility] [id number] [facility] 2021-09-19 15:14:11 2021-09-19 15:38:37 Office Visit Jostin Guzman [facility] [id number] 350.1.13.10 4.2.7.2.[id number] [facility] 2021-09-19 15:30:00 2021-09-19 15:30:00 Outpatient R TEZ JOSTIN [facility] [id number] [facility] 2021-08-22 16:06:08 2021-08-22 16:46:38 [facility] 1..840.114 350.1.13.10 4.2.7.2.[id number] [facility] 2021-08-22 15:45:00 2021-08-22 15:45:00 Outpatient R GUZMAN JOSTIN [facility] [id number] [facility] 2021-08-15 15:00:00 2021-08-15 15:00:00 Outpatient R JOSTIN GUZMAN [facility] [id number] [facility] 2021-07-11 14:00:00 2021-07-11 14:00:00 Outpatient R JOSTIN GUZMAN [facility] [id number] [facility] 2021-07-04 00:00:00 2021-07-04 00:00:00 Telephone Jostin Guzman [facility] 1..840.114 350.1.13.10 4.2.7.2.[id number] [facility] 2021-06-29 00:00:00 2021-06-29 00:00:00 Telephone Jostin Guzman [facility] 1..840.114 350.1.13.10 4.2.7.2.[id number] [facility] 2021-06-12 14:07:43 2021-06-12 14:22:43 Office Visit Jose Davis [facility] 1.840.114 350.1.13.10 4.2.7.2.[id number] [facility] 2021-06-12 14:00:00 2021-06-12 14:00:00 Outpatient R JOSE DAVIS [facility] [id number] [facility] 2021-06-04 00:00:00 2021-06-04 00:00:00 Telephone Jostin Guzman [facility]i Youssef 1.2.840.114 350.1.13.10 4.2.7.2.[id number] [facility] 2021-05-21 09:12:00 2021-05-21 13:59:00 Hospital Encounter Jostin Guzman [facility] 1.2840.114 350.1.13.10 4.2.7.2.[id number] [facility] 2021-05-21 11:29:00 2021-05-21 13:30:00 Surgery Jostin Guzman [facility] 1.2840.114 350.1.13.10 4.2.7.2.[id number] [facility] 2021-05-18 13:57:29 2021-05-18 14:12:29 Laboratory Only Only, Adc Test Jostin Guzman [facility] 1.2.840.114 350.1.13.10 4.2.7.2.[id number] [facility] 2021-05-18 10:00:00 2021-05-18 10:00:00 Outpatient R JOSTIN GUZMAN [facility] [id number] [facility] 2021-05-18 00:00:00 2021-05-18 00:00:00 Orders Only Doctor Unassigned, [place] [facility] 1.2840.114 350.1.13.10 4.2.7.2.[id number] [facility] 2021-05-03 10:19:56 2021-05-03 10:44:37 Office Visit Jostin Guzman [facility]oussef 1.2840.114 350.1.13.10 4.2.7.2.[id number] [facility] 2021-05-03 10:30:00 2021-05-03 10:30:00 Outpatient R JOSTIN GUZMAN [facility] [id number] [facility] 2021-04-25 14:00:00 2021-04-25 23:59:00 Hospital Encounter Jostin Guzman [facility] 1.2840.114 350.1.13.10 4.2.7.2.[id number] [facility] 2021-04-25 00:00:00 2021-04-25 00:00:00 Outpatient R JOSTIN GUZMAN [facility] [id number] [facility] 2021-04-25 00:00:00 2021-04-25 00:00:00 Orders Only Doctor Unassigned, [place] [facility] 1.2840.114 350.1.13.10 4.2.7.2.[id number] [facility] 2021-04-17 00:00:00 2021-04-17 00:00:00 Telephone Jostin Guzman [facility] [place] 1.2840.114 350.1.13.10 4.2.7.2.[id number] [facility] 2021-04-16 14:28:09 2021-04-16 15:31:11 Office Visit Jose Davis [facility] [place] 1.2840.114 350.1.13.10 4.2.7.2.[id number] [facility] 2021-04-16 15:15:00 2021-04-16 15:15:00 Outpatient JOSE HENRY [facility] [id number] [facility] 2020-09-08 00:00:00 2020-09-08 00:00:00 Telephone Tez Jostin Hurd [facility] 1.2.840.114 350.1.13.10 4.2.7.2.[id number] [facility] 2020-08-29 00:00:00 2020-08-29 00:00:00 Outpatient JOSTIN PETERSON [facility] [id number] [facility] 2020-08-15 00:00:00 2020-08-15 00:00:00 Orders Only Doctor Unassigned, [place] [facility] 1.840.114 350.1.13.10 4.2.7.2.[id number] [facility] 2020-08-09 00:00:00 2020-08-09 00:00:00 Telephone Tez Jostin Hurd [facility] 1.2840.114 350.1.13.10 4.2.7.2.[id number] [facility] 2020-08-03 15:18:55 2020-08-03 15:33:55 Office Visit Jose Davis [facility] 1.2840.114 350.1.13.10 4.2.7.2.[id number] [facility] 2020-08-03 15:00:00 2020-08-03 15:00:00 Outpatient JOSE HENRY [facility] [id number] [facility] 2020-08-03 00:00:00 2020-08-03 00:00:00 Letter (Out) Jose Davis [facility] 1.2.840.114 350.1.13.10 4.2.7.2.[id number] [facility] 2020-07-31 00:00:00 2020-07-31 00:00:00 Orders Only Doctor Unassigned, [place] [facility] 1.2.840.114 350.1.13.10 4.2.7.2.[id number] [facility] 2020-07-28 16:30:00 2020-07-28 23:59:00 Hospital Encounter Meir Bills [facility] 1.2.840.114 350.1.13.10 4.2.7.2.[id number] [facility] 2020-07-28 00:00:00 2020-07-28 00:00:00 Outpatient MEIR GRAMAJO [facility] [id number] [facility] 2020-07-28 00:00:00 2020-07-28 00:00:00 Orders Only Doctor Unassigned, [place] [facility] 1.2.840.114 350.1.13.10 4.2.7.2.[id number] [facility] 2020-06-05 14:00:00 2020-06-05 14:00:00 Outpatient GILBERT RUCKER [facility] [id number] [facility]
[2023-12-15 22:15] LABS: Barbiturates NEGATIVE (NEGATIVE); Benzodiazepines NEGATIVE (NEGATIVE); Cocaine NEGATIVE (NEGATIVE); METHAMPHETAM NEGATIVE (NEGATIVE); Methadone NEGATIVE (NEGATIVE); Opiates NEGATIVE (NEGATIVE); Phencyclidine NEGATIVE (NEGATIVE); Specific Gravity > 1.030 (1.005-1.030); THC Cannibis POSITIVE (NEGATIVE); Urine Bacteria None Seen /HPF (<20); Urine Bilirubin NEGATIVE (Negative); Urine Blood Negative (Negative); Urine Clarity Clear (Clear); Urine Color Yellow (Yellow); Urine Glucose NEGATIVE (Negative); Urine Mucus 1+ /HPF (None Seen); Urine Protein 2+ (Negative); Urine RBC <5 /HPF (None Seen); Urine Urobilinogen 1+ (Normal); Urine pH 7.5 (5.0-7.0)
[2023-12-15 22:16] LABS: Absolute Lymphocytes (CBC) 0.8 K/uL (0.7-4.9); Hematocrit 50.1 % (39.6-49.0); Lymphocytes % 3.8 % (15.3-44.8); MCV 88.7 fL (80-100); MPV 10.2 fL (7.6-11.3); Platelets 161 thou/uL (152-406); RBC Red Blood Cell Count 5.65 M/uL (4.33-5.43)
[2023-12-15 22:28] LABS: Albumin 4.8 g/dL (3.4-5.0); Bilirubin Total 0.9 mg/dL (0.2-1.0); Potassium 3.9 mEq/L (3.5-5.1); Protein, Total 9.3 g/dL (6.4-8.2)
[2023-12-15 23:06] LABS: Blood Morphology Comment NOT SEEN (NOT SEEN); Platelet Estimate ADEQ
--- NOTE | 2023-12-16 02:17 | EDPHYS ---
Physician Documentation [facility] Name: Rainer Cook Age: 23 yrs Sex: Male : 2000 Arrival Date: 12/15/2023 Time: 20:04 Bed 14 Private MD: ED Physician Bhaskar Joy HPI: 12/15 20:08 This 23 yrs old Black Male presents to ER via Unassigned with complaints of Abdominal sp4 Pain. 20:17 23-year-old male with history of asthma presents with acute onset lower abdominal pain sp4 associated with multiple episodes of vomiting and nonbloody diarrhea. Patient states she consumed sushi from the store at 1030 and began vomiting at 11:30 in the morning. Patient states she had multiple episodes of vomiting and watery nonbloody diarrhea. He is feeling unwell having shaking chills.. Historical: - Allergies: 20:15 No Known Allergies; tl4 - Home Meds: 20:15 albuterol sulfate 90 mcg/actuation Inhl HFA Aerosol Inhaler 2 inhalations [Active]; tl4 - PMHx: 20:15 Asthma; tl4 - PSHx: 20:15 right knee; tl4 - Immunization history:: Adult Immunizations unknown. - Social history:: Smoking status: Reported history of juuling and/or vaping. - Family history:: not pertinent. ROS: 20:17 Constitutional: Negative for fever, and weight loss, positive diarrhea positive for sp4 vomiting positive lower abdominal pain. Positive shaking chills 20:17 All other systems are negative, Exam: 20:17 Constitutional: This is a well developed, well nourished patient who is awake, alert, sp4 pale appearing male, shaking chills on arrival, ill-appearing but nontoxic. Head/Face: Normocephalic, atraumatic. Eyes: Pupils equal round and reactive to light, extra-ocular motions intact. Lids and lashes normal. Conjunctiva and sclera are not injected. Cornea within normal limits. Periorbital areas with no swelling, redness, or edema. ENT: Nares patent. No nasal discharge, no septal abnormalities noted. Tympanic membranes are normal and external auditory canals are clear. Oropharynx with no redness, swelling, or masses, exudates, or evidence of obstruction, uvula midline. Mucous membranes moist. Neck: Trachea midline, no thyromegaly or masses palpated, and no cervical lymphadenopathy. Supple, full range of motion without nuchal rigidity, or vertebral point tenderness. Chest/axilla: Normal chest wall appearance and motion. Nontender with no deformity. No lesions are appreciated. Cardiovascular: Regular rate and rhythm with a normal S1 and S2. No gallops, murmurs, or rubs. Normal PMI, no JVD. No pulse deficits. Respiratory: Lungs have equal breath sounds bilaterally, clear to auscultation and percussion. No rales, rhonchi or wheezes noted. No increased work of breathing, no retractions or nasal flaring. Abdomen/GI: Soft, with normal bowel sounds. No distension or tympany. No guarding or rebound. Positive lower abdominal tenderness Back: No spinal tenderness. No costovertebral tenderness. Skin: Warm, dry with normal turgor. Normal color with no rashes, no lesions, and no evidence of cellulitis. MS/ Extremity: Pulses equal, no cyanosis. Neurovascular intact. Full, normal range of motion. Neuro: Awake and alert, GCS 15, oriented to person, place, time, and situation. Cranial nerves II-XII grossly intact. Motor strength 5/5 in all extremities. Sensory grossly intact. Psych: Awake, alert, with orientation to person, place and time. Behavior, mood, and affect are within normal limits Vital Signs: 20:13 BP 140 / 97; Pulse 58; Resp 16; Temp 98.9(O); Pulse Ox 98% on R/A; Weight 63.5 kg; tl4 Height 5 ft. 8 in. ; Pain 8/10; 22:00 BP 145 / 98; Pulse 58; Resp 16; Pulse Ox 100% on R/A; km8 22:30 BP 145 / 86; Pulse 62; Resp 16; Pulse Ox 100% on R/A; km8 23:00 BP 148 / 101; Pulse 63; Resp 16; Pulse Ox 100% on R/A; km8 23:30 BP 151 / 94; Pulse 63; Resp 16; Pulse Ox 100% on R/A; km8 12/16 00:00 BP 144 / 98; Pulse 64; Resp 16; Pulse Ox 100% on R/A; km8 00:30 BP 124 / 77; Pulse 64; Resp 16; Pulse Ox 100% on R/A; km8 01:00 BP 146 / 86; Pulse 63; Resp 16; Pulse Ox 100% on R/A; 8 02:20 BP 146 / 104; Pulse 93; Resp 16; Pulse Ox 100% on R/A; km8 12/15 20:13 Body Mass Index 21.29 (63.50 kg, 172.72 cm) 4 12/15 20:13 Pain Scale: Adult tl4 Romario Coma Score: 12/15 22:00 Eye Response: spontaneous(4). Motor Response: obeys commands(6). Verbal Response: km8 oriented(5). Total: 15. MDM: 20:21 Patient medically screened. [facility] 12/16 22:13 Differential Diagnosis altered mental status, sepsis, flu. Data reviewed: vital signs, sp4 nurses notes, old medical records, lab test result(s), CBC, electrolytes. Consideration of Admission/Observation Escalation of care including admission/observation considered. ED course: Patient improved after IV hydration. Patient feels improved. Stable for discharge home. 12/15 20:15 Order name: CBC with Diff; Complete Time: 02:05 sp4 12/15 20:15 Order name: CMP; Complete Time: 02:05 4 12/15 20:15 Order name: Lipase; Complete Time: 02:05 4 12/15 20:15 Order name: Urinalysis w/ reflexes; Complete Time: 02:05 4 12/15 20:16 Order name: Urine Drug Screen; Complete Time: 02:05 4 12/15 20:16 Order name: Lactate w/ 2H reflex if indic.; Complete Time: 02:05 [facility] 12/15 22:19 Order name: Manual Differential; Complete Time: 02:05 EDMS 12/16 02:14 Order name: Lactate Sepsis 2 HR Follow-up; Complete Time: 02:14 EDMS 12/15 20:15 Order name: IV Saline Lock; Complete Time: 21:58 [facility] 12/15 20:15 Order name: Labs collected and sent; Complete Time: 21:58 sp4 Administered Medications: 12/15 22:12 Drug: TORadol - Ketorolac IVP 30 mg IVP once Route: IVP; Site: right upper arm; [facility] 12/16 00:00 Follow up: Response: No adverse reaction [facility] 12/15 21:12 Drug: morphine IVP or IV 4 mg IVP once over 4 mins Route: IVP; Infused Over: 4 mins; [facility] Site: right upper arm; 12/16 00:00 Follow up: Response: No adverse reaction [facility] 12/15 21: Drug: NS 0.9% IV 1000 ml IV at 1 bolus Per protocol; 1000 mL bolus Route: IV; Rate: 1 [facility] bolus; Site: right upper arm; 12/16 00:00 Follow up: IV Status: Completed infusion; IV Intake: 1000ml [facility] 12/15 21: Drug: Ondansetron IVP 8 mg IVP once; over 2 minutes Route: IVP; Site: right upper arm; [facility] 12/16 00:00 Follow up: Response: No adverse reaction [facility] 12/15 21: Drug: NS 0.9% IV 1000 ml IV at 250 ml/hr continuous Route: IV; Rate: 250 ml/hr; Site: [facility] right [facility]; 12/16 02:42 Follow up: IV Status: Completed infusion; IV Intake: 750ml [facility] 12/15 21: Drug: metoCLOPramide IVP 10 mg IVP once; over 1 to 2 minutes Route: IVP; Site: right [address]; 12/16 00:00 Follow up: Response: No adverse reaction [facility] 02:20 Drug: Dicyclomine PO 20 mg PO once Route: PO; 8 02:42 Follow up: Response: No adverse reaction [facility] 02:20 Drug: Diphenoxylate-Atropine PO 2 tabs PO once Route: PO; 8 02:42 Follow up: Response: No adverse reaction 02:20 Drug: Promethazine PO 25 mg PO once Route: PO; 8 02:42 Follow up: Response: No adverse reaction [facility] Disposition Summary: 12/16/23 02:16 Discharge Ordered Notes: Location: Home sp4 Problem: new sp4 Symptoms: have improved sp4 Condition: Stable sp4 Diagnosis - Acute food poisoning, acute gastroenteritis sp4 Followup: sp4 - With: Jacob Aguilar MD - When: 7 - 10 days - Reason: Recheck today's complaints Discharge Instructions: - Discharge Summary Sheet sp4 - Food Poisoning, [id number] sp4 Forms: - Patient Portal Instructions sp4 Prescriptions: - Lomotil 2.5-0.025 mg Oral Tablet - take 1 tablet ORAL route every 6 hours As needed; 20 tablet; Refills: 0, sp4 Product Selection Permitted - promethazine 25 mg Oral tablet - take 1 tablet ORAL route every 6 hours As needed PRN nausea; 30 tablet; sp4 Refills: 0, Product Selection Permitted - dicyclomine 20 mg Oral tablet - take 1 tablet ORAL route 4 times per day PRN abdominal pain; 30 tablet; sp4 Refills: 0, Product Selection Permitted Signatures: Dispatcher [employer] Bhaskar Silva MD MD sp4 Suzanne Zuniga RN RN km8 Dashawn Bruno RN RN tl4
--- NOTE | 2023-12-16 02:17 | ER ---
Nurse's Notes [facility] Name: Rainer Cook Age: 23 yrs Sex: Male : 2000 Arrival Date: 12/15/2023 Time: 20:04 Bed 14 Private MD: Diagnosis: Acute food poisoning, acute gastroenteritis Presentation: 12/15 20:13 Chief complaint: Patient states: Pt arrived by EMS. Pt c/o low abd pain, vomiting, tl4 diarrhea since eating sushi this morning. Coronavirus screen: At this time, the client does not indicate any symptoms associated with coronavirus-19. Ebola Screen: No symptoms or risks identified at this time. Initial Sepsis Screen: Does the patient meet any 2 criteria? No. Patient's initial sepsis screen is negative. Does the patient have a suspected source of infection? No. Patient's initial sepsis screen is negative. Risk Assessment: Do you want to hurt yourself or someone else? Patient reports no desire to harm self or others. Onset of symptoms was December 15, 2023 at 11:30. 20:13 Method Of Arrival: EMS: [facility] tl4 20:13 Acuity: REI 3 tl4 Triage Assessment: 20:16 General: Appears uncomfortable, ill, Behavior is cooperative. Pain: Complains of pain tl4 in abdomen. EENT: No deficits noted. No signs and/or symptoms were reported regarding the EENT system. Neuro: No deficits noted. Denies weakness dizziness. Cardiovascular: No deficits noted. Denies chest pain, lightheadedness, palpitations. Respiratory: No deficits noted. Denies cough, shortness of breath. GI: Reports lower abdominal pain, diarrhea, intolerance of fluids, intolerance of food, nausea, vomiting. : No deficits noted. No signs and/or symptoms were reported regarding the genitourinary system. Derm: No deficits noted. No signs and/or symptoms reported regarding the dermatologic system. Musculoskeletal: No deficits noted. No signs and/or symptoms reported regarding the musculoskeletal system. Historical: - Allergies: 20:15 No Known Allergies; tl4 - Home Meds: 20:15 albuterol sulfate 90 mcg/actuation Inhl HFA Aerosol Inhaler 2 inhalations [Active]; tl4 - PMHx: 20:15 Asthma; tl4 - PSHx: 20:15 right knee; tl4 - Immunization history:: Adult Immunizations unknown. - Social history:: Smoking status: Reported history of juuling and/or vaping. - Family history:: not pertinent. Screenin:18 [facility] ED Fall Risk Assessment (Adult) History of falling in the last 3 months, tl4 including since admission No falls in past 3 months (0 pts) Confusion or Disorientation No (0 pts) Intoxicated or Sedated No (0 pts) Impaired Gait No (0 pts) Mobility Assist Device Used No (0 pt) Altered Elimination No (0 pt) Score/Fall Risk Level 0 - 2 = Low Risk Oriented to surroundings, Maintained a safe environment, Educated pt \T\ family on fall prevention, incl call for assistance when getting out of bed, Assessed \T\ reinforced patient's understanding of fall precautions, Provided non-skid footwear, Hourly rounding (assess needs \T\ fall precautionary measures) done, Used ambulatory aids as needed (educated on \T\ assisted with), Used gait belt as appropriate. Abuse screen: Denies threats or abuse. Denies injuries from another. Nutritional screening: No deficits noted. Tuberculosis screening: No symptoms or risk factors identified. Assessment: 22:00 General: Appears in no apparent distress. uncomfortable, Behavior is calm, cooperative, km8 appropriate for age. Pain: Complains of pain in abdomen Pain currently is 6 out of 10 on a pain scale. Neuro: Level of Consciousness is awake, alert, obeys commands, Oriented to person, place, time, situation. Cardiovascular: Denies chest pain, shortness of breath, Patient's skin is warm and dry. Respiratory: Airway is patent Respiratory effort is even, unlabored, Respiratory pattern is regular, symmetrical. GI: Abdomen is non-distended, Bowel sounds present X 4 quads. Abd is soft Reports lower abdominal pain, upper abdominal pain, nausea, vomiting. : No signs and/or symptoms were reported regarding the genitourinary system. EENT: No signs and/or symptoms were reported regarding the EENT system. Derm: No signs and/or symptoms reported regarding the dermatologic system. Skin is intact, is healthy with good turgor, Skin is dry, Skin is pink, warm \T\ dry. normal, Skin temperature is warm. Musculoskeletal: No signs and/or symptoms reported regarding the musculoskeletal system. Range of motion: intact in all extremities. 23:00 Reassessment: Patient appears in no apparent distress at this time. No changes from km8 previously documented assessment. pt sleeping at this time. 12/16 00:00 Reassessment: Patient appears in no apparent distress at this time. No changes from km8 previously documented assessment. 01:00 Reassessment: Patient appears in no apparent distress at this time. No changes from km8 previously documented assessment. 01:30 Reassessment: Patient appears in no apparent distress at this time. Patient and/or km8 family updated on plan of care and expected duration. Pain level reassessed. Patient is alert, oriented x 3, equal unlabored respirations, skin warm/dry/pink. Patient states feeling better. Vital Signs: 12/15 20:13 BP 140 / 97; Pulse 58; Resp 16; Temp 98.9(O); Pulse Ox 98% on R/A; Weight 63.5 kg; tl4 Height 5 ft. 8 in. ; Pain 8/10; 22:00 BP 145 / 98; Pulse 58; Resp 16; Pulse Ox 100% on R/A; km8 22:30 BP 145 / 86; Pulse 62; Resp 16; Pulse Ox 100% on R/A; km8 23:00 BP 148 / 101; Pulse 63; Resp 16; Pulse Ox 100% on R/A; km8 23:30 BP 151 / 94; Pulse 63; Resp 16; Pulse Ox 100% on R/A; km8 12/16 00:00 BP 144 / 98; Pulse 64; Resp 16; Pulse Ox 100% on R/A; km8 00:30 BP 124 / 77; Pulse 64; Resp 16; Pulse Ox 100% on R/A; km8 01:00 BP 146 / 86; Pulse 63; Resp 16; Pulse Ox 100% on R/A; km8 02:20 BP 146 / 104; Pulse 93; Resp 16; Pulse Ox 100% on R/A; km8 12/15 20:13 Body Mass Index 21.29 (63.50 kg, 172.72 cm) tl4 12/15 20:13 Pain Scale: Adult tl4 Romario Coma Score: 12/15 22:00 Eye Response: spontaneous(4). Motor Response: obeys commands(6). Verbal Response: km8 oriented(5). Total: 15. ED Course: 20:08 Patient arrived in ED. im 20:08 Bhaskar Joy MD is Attending Physician. sp4 20:15 Triage completed. tl4 20:17 Arm band placed on left wrist. tl4 21:45 Inserted saline lock: 20 gauge in right upper arm, using aseptic technique. Blood km8 collected. 21:50 Mary Trujillo, RN is Primary Nurse. me1 21:58 Urinalysis w/ reflexes Sent. me1 21:58 Urine Drug Screen Sent. me1 22:00 Patient has correct armband on for positive identification. Bed in low position. Call km8 light in reach. Side rails up X 1. Pulse ox on. NIBP on. Door closed. Noise minimized. Lights dimmed. Warm blanket given. 22:00 No provider procedures requiring assistance completed. Patient maintains SpO2 km8 saturation greater than 95% on room air. 12/16 01:38 Diet: Patient given ice chips. Patient given water. Tolerated well. km8 02:15 Jacob Aguilar MD is Referral Physician. sp4 02:42 Provided Education on: d/c teaching. km8 02:42 IV discontinued, intact, bleeding controlled, No redness/swelling at site. Pressure km8 dressing applied. Administered Medications: 12/15 22:12 Drug: TORadol - Ketorolac IVP 30 mg IVP once Route: IVP; Site: right upper arm; 12/16 00:00 Follow up: Response: No adverse reaction [facility] 12/15 22:12 Drug: morphine IVP or IV 4 mg IVP once over 4 mins Route: IVP; Infused Over: 4 mins; km8 Site: right upper arm; 12/16 00:00 Follow up: Response: No adverse reaction [facility] 12/15 21:13 Drug: NS 0.9% IV 1000 ml IV at 1 bolus Per protocol; 1000 mL bolus Route: IV; Rate: 1 km8 bolus; Site: right upper arm; 12/16 00:00 Follow up: IV Status: Completed infusion; IV Intake: 1000ml [facility] 12/15 21:13 Drug: Ondansetron IVP 8 mg IVP once; over 2 minutes Route: IVP; Site: right upper arm; [facility] 12/16 00:00 Follow up: Response: No adverse reaction [facility] 02/12 22:13 Drug: NS 0.9% IV 1000 ml IV at 250 ml/hr continuous Route: IV; Rate: 250 ml/hr; Site: [facility] right upper arm; 12/16 02:42 Follow up: IV Status: Completed infusion; IV Intake: 750ml 8 12/15 22:13 Drug: metoCLOPramide IVP 10 mg IVP once; over 1 to 2 minutes Route: IVP; Site: right [facility]; 12/16 00:00 Follow up: Response: No adverse reaction km8 02:20 Drug: Dicyclomine PO 20 mg PO once Route: PO; km8 02:42 Follow up: Response: No adverse reaction km8 02:20 Drug: Diphenoxylate-Atropine PO 2 tabs PO once Route: PO; km8 02:42 Follow up: Response: No adverse reaction 8 02:20 Drug: Promethazine PO 25 mg PO once Route: PO; km8 02:42 Follow up: Response: No adverse reaction [facility] Medication: 12/15 20:18 VIS not applicable for this client. tl4 Intake: 12/16 00:00 IV: 1000ml; Total: 1000ml. 8 02:42 IV: 750ml; Total: 1750ml. km8 Outcome: 02:16 Discharge ordered by . sp4 02:42 Discharged to home ambulatory, km8 02:42 Condition: good 02:42 Discharge instructions given to patient, Instructed on discharge instructions, follow up and referral plans. medication usage, Demonstrated understanding of instructions, follow-up care, medications, Prescriptions given X 3, 02:43 Patient left the ED. 8 Signatures: Bhaskar Joy MD MD sp4 Sophie Lezama Michelle RN RN me1 Suzanne Zuniga RN RN km8 Dashawn Bruno RN RN tl4
[2023-12-16 03:19] VITALS: TEMP 98.9; O2SAT 100
[2023-12-16 03:38] VITALS: BP 146/104
== END ==
LOC: ER 20:04
DX: K52.9 Noninfective gastroenteritis and colitis, unspecified (principal); A05.9 Bacterial foodborne intoxication, unspecified
CPT/HCPCS: 36415; 80053; 80307; 81001; 83605; 83690; 85025; J2405; J2765; J7030